=== PATIENT | male | born 1945 | race Caucasian/White ===

== ENCOUNTER 2022-04-10 04:43 | Emergency (ER) | payer MEDICARE, SELFPAY ==
[2022-04-10 04:48] VITALS: BP 196/84; PULSE 75; RESP 19; TEMP 36.7; O2SAT 95; BMI 25.7
--- NOTE | 2022-04-10 05:01 | ED_ITS ---
HPI - General Adult General: Chief complaint: General Medical Stated complaint: Rib Pain Time Seen by Provider: 04/10/22 04:55 Source: patient History of Present Illness: 76-year-old male with focal right-sided anterior lateral rib pain for the last 2 weeks. He notes that he was getting into a [id number] around that time, and felt a stretch. He also notes that his daughter struck him in that area playing around that same time. He denies significant cough, fever, shortness of breath, nausea or vomiting. The pain awoke him from sleep this morning, so he decided to come be evaluated. Onset (ago): week(s) (2) Location: chest Radiation: non-radiation Severity: moderate Quality: sharp Pain Consistency: intermittent Relieving factors: none Exacerbating factors: movement Associated symptoms: Deny chest pain, confusion, cough, diaphoresis, decreased appetite, dyspnea, fevers/chills, headache(s), nausea, rash or vomiting Review of Systems Const: Denies: fever(s), chills or diaphoresis ENMT: Denies: throat pain Card: Denies: chest pain Resp: Denies: dyspnea GI: Denies: nausea or vomiting Musc: Denies: neck pain or back pain Skin/Breast: Denies: rash Neuro: Denies: headache(s) or confusion Physical Exam Const: COMMON NORMALS: no acute distress and alert GENERAL APPEARANCE: not ill appearing HENMT: COMMON NORMALS: normocephalic, atraumatic and Normal external nose present HEAD & SCALP: normocephalic and atraumatic NOSE: Normal external nose present Eye: COMMON NORMALS: Equal, round and reactive pupils present and EOMs intact bilaterally PUPIL: Yes Equal, round and reactive pupils present Neck/C-Spine: GENERAL: Yes trachea midline Chest: CHEST: Yes Symmetrical chest wall rise OTHER: Examination of the chest wall reveals anterior lateral rib tenderness very focally around the right ribs 7. There is no deformity. There is no flail segm ent. There is no ecchymosis or bruising. Resp: COMMON NORMALS: normal respiratory effort, No use of accessory muscles and clear to auscultation bilaterally AUSCULTATION: clear to auscultation bilaterally Cardio: COMMON NORMALS: regular rate and regular rhythm RATE: regular rate RHYTHM: regular rhythm GI: COMMON NORMALS: Normal to inspection, nondistended, normoactive bowel sounds present, Soft to palpation and non-tender PALPATION: Yes Soft to palpation : COMMON NORMALS: No no CVA tenderness BLADDER/KIDNEY EXAM: No no CVA tenderness Back/Pelvis: COMMON NORMALS: negative for no CVA tenderness Extremity: COMMON NORMALS: no pedal edema Neuro: HORTENCIA COMA SCALE: document GCS findings [place] coma scale eye opening: Spontaneous [place] coma scale verbal response: Orientated Hortencia coma scale motor response: Obey commands Hortencia coma scale total score: 15 SENSORIUM/ORIENTATION: Yes alert SENSORY EXAM: Yes extremities (Intact) MOTOR EXAM: 5/5 motor strength present throughout Skin: COMMON NORMALS: no rashes or lesions noted GENERAL SKIN EXAM: no rashes or lesions noted Course Vital Signs: Vital signs: Vital Signs Temperature 98.1 F 04/10/22 04:48 Pulse Rate 75 04/10/22 04:48 Respiratory Rate 16 04/10/22 05:09 Blood Pressure 196/84 04/10/22 04:48 Pulse Oximetry 95 04/10/22 04:48 Oxygen Delivery Me thod 04/10/22 04:48 [facility] - General Adult Medical Decision Making Patient with very focal very reproducible right anterior lateral chest wall tenderness. He is nontachycardic, and not short of breath. He has no fever, no history of cough. His EKG is normal with a rate of 75, normal axis, no ST changes. Intervals are normal. He is in sinus. His chest x-ray shows a right lateral nondisplaced fracture rib #6. There is no apparent mass. There is no corresponding pneumothorax or infiltrate. He will be allowed home to follow-up with his doctor. Discharge Plan Discharge Patient Disposition: Home Clinical Impression: Fracture of rib Condition: Stable Prescriptions: New hydrocodone-acetaminophen 5-325 mg tablet 1 tab PO Q8H PRN (Reason: pain) Qty: 7 0RF Discharge Orders: Discharge ED (Routine); Ordered 04/10/22 Ordered By: Bruno Seay Patient Instructions: Rib Fracture (ED), Opioid Safety Activity Restrictions/Additional Instructions: Use Tylenol or ibuprofen during the day. Use pain medication to help you sleep. Return for shortness of breath, fever, worsening pain despite treatment, any o ther concerning symptoms Coding Level of Care Code ED Director Digital Communications for Chg Fwd Exam Comprehensive
--- NOTE | 2022-04-10 05:05 | XRR_ITS ---
PROCEDURE INFORMATION: Exam: XR Right Ribs with PA Chest Exam date and time: 04/10/2022 5:18 AM Age: 76 years old Clinical indication: Other: RT antior mid ribs; Patient HX: Pain to mid right anterior ribs x 2 weeks no known injury; Additional info: R mid rib pain TECHNIQUE: Imaging protocol: Radiologic exam of the Right ribs with PA chest. Views: 3 views COMPARISON: No relevant prior studies available. FINDINGS: Lungs: Unremarkable. No consolidation. Pleural spaces: Unremarkable. No pleural effusion. No pneumothorax. Heart/Mediastinum: Unremarkable. No cardiomegaly. Bones/joints: Degenerative changes of the spine seen. There is nondisplaced fracture of the right anterolateral 5th and 6th ribs. XR/XR ribs RT mn 3V w [id number] IMPRESSION: Nondisplaced fracture of the right anterolateral 5th and 6th ribs.
[2022-04-10 05:09] VITALS: RESP 16
[2022-04-10] MEDS: oxyCODONE-APAP 5-325 mg Tablet 2 TAB PO (05:09)
[2022-04-10 05:48] VITALS: PULSE 71; RESP 16; O2SAT 97
== END 2022-04-10 05:45 | disposition home or self-care (01) ==
PROVIDERS: Emergency Provider Emergency Medicine
DX: S22.31XA Fracture of one rib, right side, initial encounter for closed fracture (principal); X50.9XXA Other and unspecified overexertion or strenuous movements or postures, initial encounter
CPT/HCPCS: 71101; 99283

== ENCOUNTER 2025-02-27 14:52 | Observation (INO) | payer MEDICARE, SELFPAY ==
[2025-02-27] VITALS (7 sets, daily range): BP systolic 172–206; BP diastolic 86–103; PULSE 89–101; RESP 16–22; TEMP 36.8–37.1; O2SAT 97–99; BMI 25.1; BMI 23.6
--- OUTSIDE RECORDS SUMMARY | 2025-02-27 15:21 | XMS_ITS | Encounter Summary ---
Author Organization [facility] Address [address] [place] [address] Care Team Providers Care Middle School Coach Name Role Phone Adriana Smith DO Primary Care Provider Encounter Details Date Type Department Care Team (Late st Contact Info) Description 05/30/2021 Telephone [facility] Medicine [place] [address] [facility] [place] [address] Adriana Smith DO [address] [place] [address] Social History Tobacco Use Types Packs/Day Years Used Date Smoking Tobacco: Never Smokeless Tobacco: Current Chew Alcohol Use Standard Drinks/Week Comments No 0 (1 standard drink = 0.6 oz pur e alcohol) Sex and Gender Information Value Date Recorded Sex Assigned at Not on file 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
--- OUTSIDE RECORDS SUMMARY | 2025-02-27 15:21 | XMS_ITS | Encounter Summary ---
Author Organization [facility] Address [address] [place] [address] Care Team Providers Care Validation Specialist Name Role Phone Adriana Smith DO Primary Care Provider Encounter Details Date Type Department Care Team (Late st Contact Info) Description 03/09/2003 Outpatient Historical [facility] [place] [address] [address] 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
--- OUTSIDE RECORDS SUMMARY | 2025-02-27 15:21 | XMS_ITS | Encounter Summary ---
Author Organization [facility] Address [address] [place] [address] Care Team Providers Care Mobile Lab Technician Name Role Phone Adriana Smith DO Primary Care Provider [phone] Encounter Details Date Type Department Care Team (Late st Contact Info) Description 02/25/2025 External Device Data [facility]STRACTION Provider, Abstract NO ADDRESS ON FILE Social History Tobacco Use Types Packs/Day Years Used Date Smoking Tobacco: Never Passive Smoke Exposure: Never Smokeless Tobacco: Current Chew Alcohol Use Standard Drinks/Week Comments No 0 (1 standard drink = 0.6 oz pur e alcohol) Sex and Gender Information Value Date Recorded Sex Assigned at Not on file 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
--- OUTSIDE RECORDS SUMMARY | 2025-02-27 15:21 | XMS_ITS | Encounter Summary ---
Author Organization [facility] Address [address] [place] [address] Care Team Providers Care Pediatric Physician Assistant Name Role Phone Adriana Smith DO Primary Care Provider [phone] Encounter Details Date Type Department Care Team (Late st Contact Info) Description 02/24/2025 External Device Data [facility] ABSTRACTION Provider, Abstract [...] on file Legal Sex Male 5:27 AM TRANSCRIPTION TYPIST Gender Identity Not on file Sexual Orientation Not on file documented as of this encounter Plan of Treatment Not on file documented as of this encounter Visit Diagnoses Not on filedocumented in this encounter Additional Health Concerns Assessment Noted Time PHQ-9 Depression Total Score: 2 06/10/20 24 9:18 AM CDT documented as of this encounter Care Teams Pediatric Physician Assistant Relationship Specialty Start Date End Date Adriana Smith DO [address] [facility] [place] [address] PCP - General Family Practice 04/29/10 documented as of this encounter
--- OUTSIDE RECORDS SUMMARY | 2025-02-27 15:21 | XMS_ITS | Clinical Summary ---
Author Organization [facility] Address [address] [place] [place] [address] Care Team Providers Care Hydrate Control Tender Name Role Phone Adriana Smith Primary Care Provider [phone]- [phone] Allergies Active Allergy Reactions Criticality Noted Date Comments Aspirin Palpitations Low 01/04/2022 Medications sildenafiL, pulm.hypertension, (REVATIO) 20 mg TabletIndications:Erecti le dysfunction, unspecified erectile dysfunction type Take 1-2.5 tabs 30 minutes prior to sexual activity. 10 Tablet 02/07/20 23 Active ALPRAZolam (XANAX) 0.25 mg tabletIndications:Anxiet y Take 1 Tablet (0.25 mg) by mouth nightly as needed for Anxiety. 30 Tablet 2 02/07/20 23 Active citalopram (CeleXA) 40 mg tabletIndications:Recurr ent major depressive disorder, in partial remission Take 1 Tablet (40 mg) by mouth daily. 90 Tablet 3 06/04/20 24 Active metoprolol tartrate (LOPRESSOR) 50 mg tabletIndications:Essent ial hypertension TAKE 1 TABLET BY MOUTH TWICE DAILY 180 Tablet 1 11/28/19 25 Active pantoprazole (PROTONIX) 40 mg Tablet, Delayed Release (E.C.)Indications:Gastro esophageal reflux disease without esophagitis TAKE 1 TABLET BY MOUTH DAILY. 100 Tablet 1 11/28/19 25 Active simvastatin (ZOCOR) 20 mg tabletIndications:Pure hypercholesterolemia TAKE ONE TABLET BY MOUTH DAILY AT BEDTIME 100 Tablet 1 12/09/19 25 Active Active Problems Problem Noted Date Diagnosed Date Pure hypercholesterolemia 08/27/2023 Generalized anxiety disorder 01/04/2022 Chewing tobacco dependence 12/13/2020 Anxiety 07/27/2014 Elevated LDL cholesterol level 07/27/2014 Fibromyalgia muscle pain 01/12/2014 Anxiety state 05/08/2010 Essential hypertension 05/08/2010 Resolved Problems Problem Noted Date Diagnosed Date Resolved Date Grief reaction 05/08/2010 09/03/2013 Encounters Date Type Department Care Team Description 02/25/2025 External Device Data [facility] ABSTRACTION Provider, Abstract 02/25/2025 External Device Data [facility] ABSTRACTION Provider, Abstract 02/25/2025 External Device Data [facility] ABSTRACTION Provider, Abstract 02/24/2025 External Device Data [facility] ABSTRACTION Provider, Abstract 01/27/2025 External Device Data [facility] ABSTRACTION Provider, Abstract 01/06/2025 External Device Data [facility] ABSTRACTION Provider, Abstract 01/01/2025 External Device Data [facility] ABSTRACTION Provider, Abstract 12/30/2024 External Device Data [facility] ABSTRACTION Provider, Abstract 12/08/2024 Refill [facility] [address] [place] [address] Lukas Tavarez, MICHAEL Pure hypercholesterolemia from Last 3 Months Immunizations Immunization Administration Dates Next Due (ADACEL/BOOSTRIX)(10 YR UP) TDAP VACCINE, 0.5ML, IM 12/27/2018 (PFIZER)(12 YR UP) COVID-19 VACCINE - EMERGENCY USE AUTHORIZATION, MRNA, [id number](PF) 30 MCG/0.3 ML IM SUSP 05/16/2021,04/25/2021 Family History Medical History Relation Name Comments Cancer Father Diabetes Mother Relation Name Status Comments Father Mother Social History Tobacco Use Types Packs/Day Years Used Date Smoking Tobacco: Never Passive Smoke Exposure: Never Smokeless Tobacco: Current Chew Tobacco Cessation:Ready to Q uit: No; Counseling Given: Yes Alcohol Use Standard Drinks/Week Comments No 0 (1 standard drink = 0.6 oz pur e alcohol) Sex and Gender Information Value Date Recorded Sex Assigned at Not on file Legal Sex Male 5:27 AM FIVE PIECE EXPANSION MAKER HAND Gender Identity Not on file Sexual Orientation Not on file Last Filed Vital Signs Vital Sign Reading Time Taken Comments Blood Pressure 132/76 06/20/2024 4:00 PM FIVE PIECE EXPANSION MAKER HAND Pulse 67 06/10/2024 9:30 AM CDT Temperature 36.7 C (98 F) 06/10/2024 9:30 AM CDT Respiratory Rate 18 06/10/2024 9:30 AM CDT Oxygen Saturation 98% 06/10/2024 9:30 AM CDT Inhaled Oxygen Concentration - - Weight 74.6 kg (164 lb 6.4 oz) 06/10/2024 9:30 A M CDT Height 175.3 cm (5' 9 ) 06/10/2024 9:30 AM CDT Body Mass Index 24.28 06/10/2024 9:30 AM CDT Plan of Treatment Health Maintenance Due Date Last Done Comments PNEUMOCOCCAL VACCINE 50+ YEA RS (1 of 1 - PCV) 1994 ZOSTER VACCINE (1 of 2) 1994 RSV VACCINE (60+ or ) (1 - 1-dose 75+ series) 2019 COVID-19 Vaccine (3 - 2023-2 5 season) 2024 05/16/2021, 04/25/2021 Medicare [place] ([place]) Preventative Visit/Annual Wellness Visit 08/13/2024 06/10/2024, 12/07/2022, 01/04/2022, Additional history exists INFLUENZA VACCINE (#1) 2025 , 08/27/2023, 2021, Additional history exists DTAP/TDAP/TD VACCINES (2 - T d or Tdap) 12/27/2028 12/27/2018 Colorectal Cancer Screening Discontinued FIT-DNA Q 3 years Discontinued 07/19/2020 COLORECTAL SCREENING Discontinued FIT/FOBT Q 1 year Discontinued Flex Sig/CT Colonography Q 5 years Discontinued Medical Devices Implanted Type Area Automotive Sales Specialist Device Identifier Shelf Expiration Date Model / Serial / Lot Clip Crtg Med/Lrg 1112 - Sna Implanted:Qty: 1 on 01/30/2023 by Mario Escudero DO at [facility] Clip N/A: Abdomen [employer] 10/10/2027 1112 / NA / [id number] Procedures Procedure Name Priority Date/Time Associated Diagnosis Comments COLON CANCER SCREEN, STOOL DNA Routine 07/19/2020 7:06 PM FIVE PIECE EXPANSION MAKER HAND from Last 3 Months or Most Recently Relevant to Health Maintenance Results * COLON CANCER SCREEN, STOOL DNA (07/19/2020 7:06 PM FIVE PIECE EXPANSION MAKER HAND) COLOGUARD RESULT Negative Not Applicable 07/23/2020 10:22 PM [facility] Comment: A negative result indicates a low likelihood that a colorectal cancer (CRC) or an advanced adenoma (adenomatous polyps with more advanced pre-malignant features) is present. The chance that a person with a negative Cologuard test has a colorectal cancer is less than 1 in 1500 (negative predictive value >99.9%) or has an advanced adenoma is less than 5.3% (negative predictive value 94.7%). These data are based on a prospective cross-sectional screening study of 10,000 individuals at average risk for colorectal cancer who were screened with both Cologuard and colonoscopy. (Miguel Van. et al, N Engl J Med 2014;370(14):8685-1459) The normal value (reference range) for this assay is negative. COLOGUARD RE-SCREENING RECOMMENDATION: Periodic routine colorectal cancer screening is an important part of preventive healthcare for asymptomatic persons at average risk for colorectal cancer. Following a negative Cologuard result, the [place] Cancer Society and U.S. Multi-Society Task Force screening guidelines recommend a Cologuard re-screening interval of 3 years. References: [place] [employer] Society (ACS). Colorectal cancer prevention and early detection. [place], [place]: [place] [employer]; [updated 2015Dec 04]. https://www.cancer.org/cancer/hxvfg-erhklb-aijrco/ktivonrzv-utcplaytk-krnjljm/ac s-rec ommendations.html. Accessed April 12, 2018; Herberth DK, Brant CR, Awa VelasquezK, Colorectal Cancer Screening: Recommendations for Physicians and Patients from the U.S. Multi-Society Task Force on Colorectal Cancer Screening, Am J Gastroenterology 2017; 112:8276-8564. TEST TYPE: Composite algorithmic analysis of stool DNA-biomarkers with hemoglobin immunoassay. Quantitative values of individual biomarkers are not reportable and are not associated with individual biomarker result reference ranges. PRECAUTIONS AND LIMITATIONS: Cologuard is intended for colorectal cancer screening of adults of either sex, 45 years or older, who are at average-risk for colorectal cancer (CRC). Cologuard has been approved for use by the U.S. FDA. Cologuard may produce a false negative or false positive result. A negative Cologuard test result does not guarantee the absence of CRC or advanced adenoma (pre-cancer). Patients with a negative Cologuard test result should be advised to continue participating in a colorectal cancer screening program. The screening interval for Cologuard is currently recommended at an interval of every 3 years by the [place] Cancer Society and U.S. Multi-Society Task Force. A false positive result occurs when Cologuard produces a positive result, even though a colonoscopy may not find colorectal cancer or precancerous polyps. The performance of Cologuard has been established in a cross sectional study (i.e., single point in time) of average-risk adults aged 50-84. Cologuard performance in patients ages 45 to 49 years was estimated by sub-group analysis of near-age groups. Cologuard performance data in a 10,000 patient pivotal study using colonoscopy as the reference method can be accessed at the following location: www.Breathometer/results. Additional description of the Cologuard test process, warnings and precautions can be found at www.cologuardtest.com. Rx only. Stool STOOL SPECIMEN / Unknown 07/19/2020 7:06 PM FIVE PIECE EXPANSION MAKER HAND 07/20/2020 6:49 PM FIVE PIECE EXPANSION MAKER HAND us Dayan Vale [employer] MARKETING MANAGER BODY FLUIDS AND STOOLS Final Result [facility] # [id number] [address], [address] [place] [address] from Last 3 Months or Most Recently Relevant to Health Maintenance Insurance [facility] MEDICARE HMO Advance Directives For more information, please contact: [phone] * Full Code (Latest Code Status on File) Date Activated Date Inactivated Comments 01/30/2023 8:45 AM 01/30/2023 12:41 PM * Full Code Date Activated Date Inactivated Comments 01/30/2023 7:07 AM 01/30/2023 8:44 AM * Full Code Date Activated Date Inactivated Comments 01/30/2023 6:47 AM 01/30/2023 7:07 AM Care Teams Hydrate Control Tender Relationship Specialty Start Date End Date Adriana Smith DO [address] [place] [address] PCP - General Family Practice 04/29/10
--- OUTSIDE RECORDS SUMMARY | 2025-02-27 15:21 | XMS_ITS | Clinical Summary ---
Author Organization [facility] Address [address] [place] [address] Care Team Providers Care Financial Service Professional Name Role Phone Adriana Smith Primary Care Provider Allergies No known active allergies Medications citalopram (CeleXA) 40 mg tabletIndications :Anxiety state,Recurrent major depressive disorder, in partial remission TAKE 1 TABLET(40 MG) BY MOUTH DAILY 90 Tablet 4 03/23/2020 Active metoprolol tartrate (LOPRESSOR) 50 mg tabletIndications :Essential hypertension TAKE 1 TABLET(50 MG) BY MOUTH TWICE DAILY 180 Tablet 4 07/14/2020 Active ALPRAZolam (Xanax) 0.25 mg tabletIndications :Anxiety Take 1 Tablet (0.25 mg) by mouth 3 times daily as needed for Anxiety. 30 Tablet 2 07/14/2020 Active pantoprazole (Protonix) 40 mg Tablet, Delayed Release (E.C.)Indications :Gastroesophageal reflux disease without esophagitis Take 1 Tablet (40 mg) by mouth daily. 30 Tablet 1 12/13/2020 Active Active Problems Problem Noted Date Diagnosed Date Chewing tobacco dependence 12/13/2020 Anxiety 07/27/2014 Elevated LDL cholesterol level 07/27/2014 Fibromyalgia muscle pain 01/12/2014 Anxiety state 05/08/2010 HTN (hypertension) 05/08/2010 Resolved Problems Problem Noted Date Diagnosed Date Resolved Date Grief reaction 05/08/2010 09/03/2013 Immunizations Immunization Administration Dates Next Due (ADACEL/BOOSTRIX)(10 YR UP) TDAP VACCINE, 0.5ML, IM 12/27/2018 Family History Medical History Relation Name Comments Cancer Father Diabetes Mother Relation Name Status Comments Father Mother Social History Tobacco Use Types Packs/Day Years Used Date Smoking Tobacco: Never Smokeless Tobacco: Current Chew Tobacco Cessation:Ready to Q uit: No; Counseling Given: Yes Alcohol Use Standard Drinks/Week Comments No 0 (1 standard drink = 0.6 oz pur e alcohol) Sex and Gender Information Value Date Recorded Sex Assigned at Not on file 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 Gender Identity Not on file Sexual Orientation Not on file Last Filed Vital Signs Vital Sign Reading Time Taken Comments Blood Pressure 139/85 12/13/2020 8:20 AM CDT Pulse 78 12/13/2020 8:20 AM CDT Temperature 36.7 C (98 F) 12/13/2020 8:20 AM CDT Respiratory Rate 16 12/27/2018 3:12 PM CDT Oxygen Saturation 99% 12/13/2020 8:20 AM CDT Inhaled Oxygen Concentration - - Weight 79.8 kg (176 lb) 12/13/2020 8:20 AM CDT Height 175.3 cm (5' 9 ) 12/13/2020 8:20 AM CDT Body Mass Index 25.99 12/13/2020 8:20 AM CDT Plan of Treatment Health Maintenance Due Date Last Done Comments PNEUMOCOCCAL VACCINE 50+ YEA RS (1 of 1 - PCV) 1994 ZOSTER VACCINE (1 of 2) 1994 RSV VACCINE (60+ or ) (1 - 1-dose 75+ series) 2019 Medicare Advantage ([place]) Preventative Visit/Annual Wellness Visit 08/13/2024 06/10/2024, 12/13/2020, 07/14/2020, Additional history exists INFLUENZA VACCINE (#1) 2025 07/14/2020 DTAP/TDAP/TD VACCINES (2 - T d or Tdap) 12/27/2028 12/27/2018 Colorectal Cancer Screening Discontinued FIT-DNA Q 3 years Discontinued 07/19/2020 COLORECTAL SCREENING Discontinued FIT/FOBT Q 1 year Discontinued Flex Sig/CT Colonography Q 5 years Discontinued Procedures Procedure Name Priority Date/Time Associated Diagnosis Comments COLON CANCER SCREEN, STOOL DNA Routine 07/19/2020 7:06 PM SINGLE WIRE SAW OPERATOR Screening for colon cancer from Last 3 Months or Most Recently Relevant to Health Maintenance Results * COLON CANCER SCREEN, STOOL DNA (07/19/2020 7:06 PM SINGLE WIRE SAW OPERATOR) Pathologist [facility] COLOGUARD RESULT Negative Not Applicable [facility] Comment: A negative result indicates a low [...] screened with both Cologuard and colonoscopy. (Miguel Antonio et al, N Engl J Med 2014;370(14):3944-5468) The normal value (reference range) for this assay is negative. COLOGUARD RE-SCREENING RECOMMENDATION: Periodic routine colorectal cancer screening is an important part of preventive healthcare for asymptomatic persons at average risk for colorectal cancer. Following a negative Cologuard result, the [place] Cancer Society and U.S. Multi-Society Task Force screening guidelines recommend a Cologuard re-screening interval of 3 years. References: [place] [employer] Society (ACS). Colorectal cancer prevention and early detection. [place], [place]: [place] [employer] Society; [updated 2015Dec 04]. https://www.cancer.org/cancer/qoolu-idejwq-dhjgds/etkuzujsv-uzquafcrg-ezspync/ac s-rec ommendations.html. Accessed April 12, 2018; Herberth DK, Brant TALAVERA, Awa VelasquezK, Colorectal Cancer Screening: Recommendations for Physicians and Patients from the U.S. Multi-Society Task Force on Colorectal Cancer Screening, Am J Gastroenterology 2017; 112:4892-3178. TEST TYPE: Composite algorithmic analysis of stool [...] interval of every 3 years by the [place] [employer] Society and U.S. Multi-Society Task Force. [...] can be accessed at the following location: www.[employer]/results. Additional description of the Cologuard test process, warnings and precautions can be found at www.cologuardtest.com. Rx only. Stool STOOL SPECIMEN / Unknown 07/19/2020 7:06 PM SINGLE WIRE SAW OPERATOR 07/20/2020 6:49 PM SINGLE WIRE SAW OPERATOR us Dayan Vale LOAN REVIEW MANAGER BODY FLUIDS AND STOOLS Final Result [facility] CLIA # [id number] [address] , [address] [place] [address] from Last 3 Months or Most Recently Relevant to Health Maintenance Insurance [facility] MCR Care Teams Financial Service Professional Relationship Specialty Start Date End Date Adriana Smith DO [address] [place] [id number] PCP - General Family Practice 04/29/10
--- OUTSIDE RECORDS SUMMARY | 2025-02-27 15:21 | XMS_ITS | Encounter Summary ---
Author Organization [facility] Address 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
--- OUTSIDE RECORDS SUMMARY | 2025-02-27 15:21 | XMS_ITS | Encounter Summary ---
Author Organization [facility] Address 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
--- NOTE | 2025-02-27 15:40 | W.ED.ARRPALP ---
HPI - Arrhythmia/Palpitations General: Chief Complaint: Arrhythmia/Palpitations Stated Complaint: Fast heart rate Time Seen by Provider: 02/27/25 15:40 History of Present Illness: 79-year-old male presents emergency room complaining of rapid heart rate and palpitations. He states that this intermittently for the last 3 days he takes metoprolol and simvastatin. He does have a chest pain he has some chest discomfort as he describes it no radiation. No shortness of breath. He is not able to take aspirin because of allergy. Related Data Home Medications ?Medication ?Instructions ?Recorded ?Confirmed citalopram 40 mg tablet 40 mg PO DAILY 02/27/25 02/27/25 metoprolol tartrate 50 mg tablet 50 mg PO BID 02/27/25 02/27/25 pantoprazole 40 mg tablet,delayed 40 mg PO DAILY 02/27/25 02/27/25 release simvastatin 20 mg tablet 20 mg PO BEDTIME 02/27/25 02/27/25 Allergies Allergy/AdvReac Type Severity Reaction Status Date / Time aspirin Allergy ADR/ALGY-Pa Verified 02/27/25 14:58 lpitations Review of Systems Const: Denies: fever(s) or chills Card: Reports: palpitations; Denies: chest pain Resp: Denies: dyspnea GI: Denies: abdominal pain : Denies: dysuria, urinary frequency or urinary urgency Musc: Denies: neck pain or back pain Skin/Breast: Denies: rash PFS ED PFSH: Medical History (Updated 02/27/25 @ 16:54 by Mina Durán DO) Hyperlipidemia Hypertension Physical Exam Const: GENERAL APPEARANCE: cooperative ORIENTATION/CONSCIOUSNESS: Yes awake, Yes oriented to person, Yes oriented to place and Yes oriented to time HENMT: COMMON NORMALS: normocephalic, atraumatic and hearing grossly normal bilaterally HEAD & SCALP: normocephalic and atraumatic Resp: COMMON NORMALS: normal respiratory effort, No retractions, No use of accessory muscles and clear to auscultation bilaterally AUSCULTATION: clear to auscultation bilaterally Cardio: COMMON NORMALS: regular rate, regular rhythm and No murmurs present (Cardio) RATE: regular rate RHYTHM: regular rhythm GI: COMMON NORMALS: Soft to palpation and No hepatosplenomegaly present AUSCULTATION: Yes normoactive bowel sounds PALPATION: Yes Soft to palpation, No Tenderness to palpation present (GI), No Guarding due to palpation present (GI) and Yes No hepatosplenomegaly present Extremity: COMMON NORMALS: normal to inspection, capillary refill normal, no clubbing, cyanosis or edema, no calf tenderness and no pedal edema Neuro: SENSORIUM/ORIENTATION: Yes oriented to person, Yes oriented to place and Yes oriented to time Skin: COMMON NORMALS: no rashes or lesions noted GENERAL SKIN EXAM: no rashes or lesions noted Course Vital Signs: Vital signs: Vital Signs Temperature 98.3 F 02/27/25 14:58 Pulse Rate 98 02/27/25 14:58 Respiratory Rate 16 02/27/25 14:58 Blood Pressure 206/93 02/27/25 14:58 Pulse Oximetry 99 02/27/25 14:58 Oxygen Delivery Me thod Room Air 02/27/25 14:58 MDM - Arrhythmia/Palpitations Medical Decision Making Initial EKG shows noticeable ST depression in the lateral leads these resolves by time the second 1 is drawn. He is moderately hypertensive he was given hydralazine. Will admit the patient to hospitalist consult cardiology. Medical Records I reviewed the patient's medical records. Lab Data I reviewed the patient's lab results. 02/27/25 16:32 02/27/25 16:32 Laboratory Results WBC 8.64 10^3/uL (3.29-11.43) 02/27/25 16:32 RBC 5.44 10^6/uL (3.85-5.65) 02/27/25 16:32 Hgb 16.20 g/dL (11.27-16.99) 02/27/25 16:32 Hct 48.9 % (37-53) 02/27/25 16:32 MCV 89.9 fl (82-101) 02/27/25 16:32 MCH 29.8 pg (27-33) 02/27/25 16:32 MCHC 33.1 g/dL (30-55) 02/27/25 16:32 RDW 12.6 % (12.1-15.1) 02/27/25 16:32 Plt Count 263 10^3/cmm (157-399) 02/27/25 16:32 MPV 10.1 fL (7.4-10.4) 02/27/25 16:32 Neut % (Auto) 65.7 % 02/27/25 16:32 Lymph % (Auto) 26.6 % 02/27/25 16:32 [place] % (Auto) 6.7 % 02/27/25 16:32 Eos % (Auto) 0.3 % 02/27/25 16:32 Baso % (Auto) 0.5 % 02/27/25 16:32 Neut # (Auto) 5.67 10^3/uL (1.8-7.7) 02/27/25 16:32 Lymph # (Auto) 2.3 10^3/uL (0.8-4.8) 02/27/25 16:32 [place] # (Auto) 0.6 10^3/uL (0.2-0.9) 02/27/25 16:32 Eos # (Auto) 0.0 10^3/uL (0.0-0.8) 02/27/25 16:32 Baso # (Auto) 0.0 10^3/uL (0.0-0.1) 02/27/25 16:32 Nucleated RBC % (auto) 0 % 02/27/25 16:32 Nucleated RBCs # 0.0 /100WBC 02/27/25 16:32 XR interpretation done by ED provider, pending radiology final review EKG Data EKG 1: Interpretation: EKG February 27, 2025 1456 normal sinus rhythm rate of 96. [address] depression in lateral leads V4 [address] elevation. No previous EKGs to compare EKG 2: Interpretation: EKG since February 27, 2025 1614 normal sinus rhythm rate of 80 MI interval [address] depressions seen in V4 5 and 6 previously has resolved and returned normal baseline. Discharge Plan Discharge Patient Disposition: Admitted As Inpatient Clinical Impression: Abnormal ECG, Palpitations Condition: Stable Coding Level of Care Code ED Neurology Tech for Jamie Mantilla
--- NOTE | 2025-02-27 16:14 | ECG_ITS ---
[facility] Test Date: 2025-02-27 Pat Name: Dar Valdes Department: Room: Gender: Male Service Center Assistant: : 1945 Requested By: Mina Corral Order Number: [id number] Jone MD: Harinder Marie M.D. Measurements Intervals [place] Rate: 80 P: 71 [place]: 161 QRS: 36 QRSD: 87 T: 48 QT: 388 QTc: 448 Interpretive Statements SINUS RHYTHM No previous ECG available for comparison Electronically Signed On 02-28-2025 00:17:09 CDT by Harinder Marie M.D. [email or web address]
--- NOTE | 2025-02-27 16:20 | ECG_ITS ---
[facility] Test Date: 2025-02-27 Pat Name: Dar Valdes Department: Room: Gender: Male Aircraft Quality Control Inspector: : 1945 Requested By: Mina Corral Order Number: [id number] Jone MD: Harinder Marie M.D. Measurements Intervals [place] Rate: 96 P: 81 MO: 155 QRS: 66 QRSD: 81 T: 42 QT: 332 QTc: 421 Interpretive Statements SINUS RHYTHM MINIMAL ST DEPRESSION [0.025+ mV ST DEPRESSION] No previous ECG available for comparison Electronically Signed On 02-28-2025 00:17:23 CDT by Harinder Marie M.D. [email or web address]
--- NOTE | 2025-02-27 16:37 | XRR_ITS ---
PROCEDURE INFORMATION: Exam: XR Chest Exam date and time: 02/27/2025 4:38 PM Age: 79 years old Clinical indication: Other: Tachycardia; Additional info: Rapid heart rate chest discomfort TECHNIQUE: Imaging protocol: Radiologic exam of the chest. Views: 1 view. COMPARISON: CR XR ribs RT mn 3V w CXR1V [id number] 04/10/2022 5:18 AM FINDINGS: Lungs: Visualized portions of the lungs are clear. There is no pulmonary venous congestion. Pleural spaces: Unremarkable. No pleural effusion. No pneumothorax. Heart/Mediastinum: Heart is within normal limits of size. Bones/joints: There are degenerative changes in the lower thoracic spine. XR/XR chest 1V portable [id number] IMPRESSION: No acute infiltrate.
[2025-02-27 16:47] LABS: Hematocrit 48.9 % (37-53); Hemoglobin 16.20 g/dL (11.27-16.99); Mean Corpuscular HGB Conc 33.1 g/dL (30-55); Mean Corpuscular Hemoglobin 29.8 pg (27-33); Mean Corpuscular Volume 89.9 fl (82-101); Nucleated Red Blood Cells % 0 %; Platelet Count 263 10^3/cmm (157-399); Red Blood Count 5.44 10^6/uL (3.85-5.65); White Blood Count 8.64 10^3/uL (3.29-11.43)
[2025-02-27] MEDS: hyDRALAzine 20 mg/mL INJ 1 mL 10 MG IVP (16:59)
[2025-02-27 17:05] LABS: Troponin(5th) Baseline 14 ng/L (0-15)
[2025-02-27 17:17] LABS: Alanine Aminotransferase 13 U/L (0-41); Albumin Level 4.2 g/dL (3.5-5.2); Alkaline Phosphatase 79 U/L (40-130); Aspartate Amino Transferase 15 U/L (0-40); Blood Urea Nitrogen 16 mg/dL (8-23); Calcium 9.5 mg/dL (8.5-10.5); Carbon Dioxide 27 mmol/L (22-29); Chloride 101 mmol/L (98-107); Creatinine Clr Calc Pharmacy 67.8374; Globulin 3.2 g/dL (1.3-4.6); Glucose 97 mg/dL (65-115); Osmolality Calculated 293 mOsm/kg (285-295); Sodium 141 mmol/L (136-145); Thyroid Stimulating Hormone 0.88 uIU/mL (0.27-4.20); Total Protein 7.4 g/dL (6.6-8.7)
[2025-02-27 17:32] LABS: Anion Gap 17.0 (5-19); Potassium 4.0 mmol/L (3.5-5.1)
--- NOTE | 2025-02-27 17:35 | PM.CONSULT ---
Providers/Reason For Consult Consulting Physician/Specialty*: HIRAL Marie MD/cardiology Reason for Consult*: Chest pain with abnormal EKG History of Present Illness History of Present Illness Dar Valdes is a 79 year old male presenting with the palpitations. Was found to have an abnormal EKG. cardiology consult was requested for further cardiac evaluation and recommendations. This patient has a history of high blood pressure and dyslipidemia for the last many years. He has been in his baseline state of health up until 3 days ago when he started having pounding in the chest associated with some discomfort. Usually happens with activities. When he tried to get up from a sitting up position, he feels a heart pounding and has some shortness of breath . No fever, chills or cough. No orthopnea PND. No leg swelling. No pounding is more or less constant with a waxing and waning. He has no previous history of coronary coronary disease, myocardial infarction or congestive heart failure. According to him, the blood pressure has been fairly stable at home. Blood pressure was found to be in the 180s and 190s in the emergency room. Has no previous history of coronary coronary disease, myocardial infarction or congestive heart failure. He has been compliant with medications. He lives alone. He chews tobacco. No smoking abuse or alcohol abuse or any other substance abuse. No significant family history for atherosclerotic heart disease. Review of Systems Narrative: CONSTITUTIONAL: No fever or chills. EYES: No blurring of vision or other visual disturbances lately. ENT: No hoarseness of voice, auditory disturbances or sore throat. CARDIOVASCULAR: As mentioned above. RESPIRATORY: May have some dyspnea on exertion. GASTROINTESTINAL: No hematemesis or melena. GENITOURINARY: No dysuria or hematuria. INTEGUMENTARY: No skin rashes or history of skin cancer. NEURO: No transient ischemic attacks or amaurosis. PSYCHIATRIC: No history of psychosis or major depression. HEMATOLOGIC: No bleeding disorders or significant anemia. ENDOCRINE: No history of polyuria or polydipsia. MUSCULOSKELETAL: No recent joint pain or swelling. ALLERGY/IMMUNOLOGY: As mentioned above. Medications/Allergies Home Medications ?Medication ?Instructions ?Recorded ?Confirmed ?Last Taken ?Type citalopram 40 mg tablet 40 mg PO DAILY 02/27/25 02/27/25 Unknown History metoprolol tartrate 50 mg tablet 50 mg PO BID 02/27/25 02/27/25 Unknown History pantoprazole 40 mg tablet,delayed 40 mg PO DAILY 02/27/25 02/27/25 Unknown History release simvastatin 20 mg tablet 20 mg PO BEDTIME 02/27/25 02/27/25 Unknown History Allergies Allergy/AdvReac Type Severity Reaction Status Date / Time aspirin Allergy ADR/ALGY-Pa Verified 02/27/25 14:58 lpitations PFSH Acute PFSH: Medical History (Updated 02/27/25 @ 18:17 by Sharona Hurt MD) Hyperlipidemia, unspecified hyperlipidemia type Primary hypertension Vitals/I&O/Wt Last Vital Signs Temp 98.3 F 02/27/25 14:58 Pulse 101 H 02/27/25 16:31 Resp 22 H 02/27/25 16:31 BP 199/103 02/27/25 16:31 Pulse Ox 99 02/27/25 16:31 O2 Del Method Room Air 02/27/25 14:58 02/27/25 02/27/25 02/27/25 06:59 14:59 22:59 Intake Total 0 / 0 Balance 0 / 0 Weight last 48 hrs Weight 170 lb Physical Exam Narrative: GENERAL: The patient is alert and oriented times three. Not in any acute distress. HEENT: No significant pallor, icterus or lymphadenopathy.Oral cavity: There are no mucous membrane lesions. NECK: Trachea appears to be central. No masses noted. No JVD or thyromegaly appreciated. RESPIRATORY: Chest is symmetrical. No intercostals muscle retraction or any accessory muscle activation. There is no chest wall tenderness. Breath sounds are heard bilaterally. No rales or rhonchi heard. No evidence of any consolidation. BREASTS: Deferred. HEART: The heart sounds are normal. No S3 or S4. No significant murmurs. No pericardial rub ABDOMEN: No vessel pulsations or distention. No tenderness. No organomegaly appreciated. Bowel sounds are normally heard. : Deferred. RECTAL: Deferred. LYMPHATIC: No lymphadenopathy noted in the neck. EXTREMITIES: No edema or cyanosis. No clubbing. MUSCULOSKELETAL: No acute joint deformities or swelling SKIN: There are no significant rashes or ecchymosis NEUROPSYCHIATRIC: The patient is alert and oriented x3. Appears to be in a good mood. No tremors or rigidity noted. Data 02/27/25 16:32 02/27/25 16:32 Other Labs: Laboratory Last Values WBC 8.64 10^3/uL (3.29-11.43) 02/27/25 16:32 RBC 5.44 10^6/uL (3.85-5.65) 02/27/25 16:32 Hgb 16.20 g/dL (11.27-16.99) 02/27/25 16:32 Hct 48.9 % (37-53) 02/27/25 16:32 MCV 89.9 fl (82-101) 02/27/25 16:32 MCH 29.8 pg (27-33) 02/27/25 16:32 MCHC 33.1 g/dL (30-55) 02/27/25 16:32 RDW 12.6 % (12.1-15.1) 02/27/25 16:32 Plt Count 263 10^3/cmm (157-399) 02/27/25 16:32 MPV 10.1 fL (7.4-10.4) 02/27/25 16:32 Neut % (Auto) 65.7 % 02/27/25 16:32 Lymph % (Auto) 26.6 % 02/27/25 16:32 [place] % (Auto) 6.7 % 02/27/25 16:32 Eos % (Auto) 0.3 % 02/27/25 16:32 Baso % (Auto) 0.5 % 02/27/25 16:32 Neut # (Auto) 5.67 10^3/uL (1.8-7.7) 02/27/25 16:32 Lymph # (Auto) 2.3 10^3/uL (0.8-4.8) 02/27/25 16:32 [place] # (Auto) 0.6 10^3/uL (0.2-0.9) 02/27/25 16:32 Eos # (Auto) 0.0 10^3/uL (0.0-0.8) 02/27/25 16:32 Baso # (Auto) 0.0 10^3/uL (0.0-0.1) 02/27/25 16:32 Nucleated RBC % (auto) 0 % 02/27/25 16:32 Nucleated RBCs # 0.0 /100WBC 02/27/25 16:32 Sodium 141 mmol/L (136-145) 02/27/25 16:32 Potassium 4.0 mmol/L (3.5-5.1) 02/27/25 16:32 Chloride 101 mmol/L (98-107) 02/27/25 16:32 Carbon Dioxide 27 mmol/L (22-29) 02/27/25 16:32 Anion Gap 17.0 (5-19) 02/27/25 16:32 BUN 16 mg/dL (8-23) 02/27/25 16:32 Creatinine 0.9 mg/dL (0.7-1.2) 02/27/25 16:32 GFR Calculation Not Reportable 02/27/25 16:32 Glucose 97 mg/dL (65-115) 02/27/25 16:32 Calculated Osmolality 293 mOsm/kg (285-295) 02/27/25 16:32 Calcium 9.5 mg/dL (8.5-10.5) 02/27/25 16:32 Total Bilirubin 0.3 mg/dL (0.15-1.2) 02/27/25 16:32 AST 15 U/L (0-40) 02/27/25 16:32 ALT 13 U/L (0-41) 02/27/25 16:32 Alkaline Phosphatase 79 U/L (40-130) 02/27/25 16:32 Troponin T Baseline 14 ng/L (0-15) 02/27/25 16:32 Total Protein 7.4 g/dL (6.6-8.7) 02/27/25 16:32 Albumin 4.2 g/dL (3.5-5.2) 02/27/25 16:32 Globulin 3.2 g/dL (1.3-4.6) 02/27/25 16:32 TSH 0.88 uIU/mL (0.27-4.20) 02/27/25 16:32 Urine Color Yellow (Yellow) 02/27/25 17: Urine Appearance Clear (CLEAR) 02/27/25 17: Urine pH 6.5 (5-7) 02/27/25 17: Ur Specific [place] 1.025 (1.005-1.030) 02/27/25 17: Urine Protein Negative (Negative) 02/27/25 17: Urine Glucose (UA) Negative (Normal) 02/27/25 17:27 Urine Ketones 1+ (Negative) H 02/27/25 17: Urine Blood Negative (Negative) 02/27/25 17: Urine Nitrate Negative (Negative) 02/27/25 17: Urine Bilirubin Negative (Negative) 02/27/25 17: Urine Urobilinogen 1.0 mg/dL (Negative) 02/27/25 17: Ur Leukocyte Esterase Negative (Negative) 02/27/25 17: Urine RBC 3-5 /hpf (0-2) 02/27/25 17:27 Urine WBC 0-5 /hpf (0-5) 02/27/25 17:27 Ur Squamous Epith Cells 0-5 /hpf (0-5) 02/27/25 17: Amorphous Sediment Not Reportable 02/27/25 17: Urine Bacteria None seen /hpf (NONE) 02/27/25 17: Hyaline Casts 0.81 /lpf 02/27/25 17:27 Other data: The EKG shows sinus rhythm with some diffuse nonspecific ST changes. A&P Assessment and plan 1. QUESADA (dyspnea on exertion): Patient's dyspnea exertion with palpitation, rather acute onset, may suggest pulmonary embolism. This need to be ruled out. LV dysfunction/coronary ischemia causing this cannot be excluded. 2. Abnormal ECG: The EKG is having nonspecific. Possibility of underlying coronary ischemia causing this is a consideration. 3. Palpitations: Possibly from the sinus tachycardia. 4. Primary hypertension: Patient has accelerated hypertension. I will start him on metoprolol 50 mg p.o. now and twice daily. 5. Hyperlipidemia, unspecified hyperlipidemia type: Lipid profile on the blood in the lab. Consider medications after reviewing the results. Plan: Metoprolol 50 mg p.o. twice daily. Nitropaste half inch every 6 hours to the anterior chest wall D-dimer Therapeutic Lovenox Possible CTA of the chest Echocardiogram duality LV function and rule out any other pathology. Based on the results of the above tests and the patient's clinical progress, further recommendations will be made. PDMP PDMP Reviewed: Not Reviewed Coding Level of Care Code 04157 Diagnoses QUESADA (dyspnea on exertion) R06.09 Abnormal ECG R94.31 Palpitations R00.2 Primary hypertension I10 Hypertension type: primary hypertension Hyperlipidemia, unspecified hyperlipidemia type E78.5 Hyperlipidemia type: unspecified
[2025-02-27 17:39] LABS: Glucose Urine UA Negative (Normal); Nitrate Urine Negative (Negative); Specific Gravity, Urine 1.025 (1.005-1.030)
[2025-02-27 17:44] LABS: Add Urine Microscopic? YES
--- NOTE | 2025-02-27 17:58 | USCV_ITS ---
Dar Valdes Age: 79 Gender: M : 1945 Exam Date: 02/27/2025 19:01 Ordering Phys: Harinder Marie MD ([email or web address]) Technologist: Phillip Ott Exam Location: [facility] Indication: abnormal ekg/ atypical chest pain BP: 172 / 94 HR: 90 Rhythm: Sinus Technical Quality: Adequate MEASUREMENTS (Male / Female) Normal Values 2D ECHO LV Diastolic Diameter PLAX 3.9 cm 4.2 - 5.9 / 3.9 - 5.3 cm IVS Diastolic Thickness 1.1 cm 0.6 - 1.0 / 0.6 - 0.9 cm IVS Systolic Thickness 1.4 cm LVPW Diastolic Thickness 1.2 cm 0.6 - 1.0 / 0.6 - 0.9 cm LVPW Systolic Thickness 1.9 cm LVOT Diameter 2.0 cm LV Ejection Fraction 2D Teich 69.5 % LV Ejection Fraction MOD 4C 78.3 % LV Ejection Fraction MOD 2C 75.0 % LV Ejection Fraction 2C AL 76.9 % LA Diameter 3.3 cm RA Systolic Volume 4C AL 24.7 ml RA Systolic Volume 4C MOD 22.8 ml LA Sys Volume AL 18.1 cm cubed LA Sys Volume Index AL 9.3 cm cubed/m squared Aorta at Sinotubular Diameter 2.4 cm IVC Diameter 1.5 cm M-MODE LA Ao Ratio MM 0.9 AV Cusp Separation MM 1.7 cm DOPPLER AV Peak Velocity 140.0 cm/s LVOT Peak Velocity 120.0 cm/s AV Area Cont Eq vti 3.4 cm squared AV Area Cont Eq pk 2.7 cm squared MV Peak Velocity 107.0 cm/s MV Area PHT 6.1 cm squared Mitral E to A Ratio 0.6 TV Peak Velocity 290.5 cm/s TR Peak Velocity 294.0 cm/s TR Peak Gradient 34.6 mmHg TR Mean Velocity 260.0 cm/s TR Mean Gradient 27.7 mmHg TR Velocity Time Integral 69.2 cm PV Peak Velocity 118.0 cm/s RV Ejection Time 0.2 s FINDINGS Left Ventricle Normal left ventricular size and systolic function, EF 76%. Mild left ventricular hypertrophy. Grade I/IV diastolic dysfunction (abnormal relaxation filling pattern), normal to mildly elevated filling pressures. Right Ventricle The right ventricle is normal in size and function. Right Atrium The right atrium is normal in size. Left Atrium The left atrium is normal in size. Mitral Valve No gross abnormalities noted Aortic Valve Thickened aortic valve. Tricuspid Valve Mild tricuspid valve regurgitation. Pulmonic Valve Mild pulmonary valve regurgitation. Pericardium Normal pericardium without effusion. Aorta Normal ascending aorta dimension. IVC Normal inferior vena cava. CONCLUSIONS Diastolic dysfunction (abnormal relaxation filling pattern), normal to mildly elevated filling pressures. Thickened aortic valve. Mild tricuspid valve regurgitation. Estimated pulmonary artery peak systolic pressure 31 mmHg Mild pulmonary valve regurgitation. No similar previous studies are available for comparison Dr Harinder Marie MD [facility] (Electronically Signed) Final Date: 28 February 2025 00:10 S
--- NOTE | 2025-02-27 18:05 | PM.HP ---
Providers/Chief Complaint Chief Complaint: Fast heart rate History of Present Illness Dar Valdes is a 79 year old male with past medical history of hypertension hyperlipidemia, depression presented to the hospital today with chief complaint of palpitations. He states he notices fast heartbeat 3 days ago. Denies nausea vomiting chest pain shortness of breath or any other issues at this time. He did have mild chest discomfort which usually he states sometimes happens with activities. Denies fever, leg swelling. Denies a history of any heart disease in the past. He states his blood pressure at home has been fairly stable. He does chew tobacco however denies alcohol use. In the ER on initial EKG he had ST depressions in lateral leads and on arrival blood pressure was elevated. Subsequent EKGs those ST depressions resolved and he was in normal sinus rhythm. Initial troponin is pending at this time. Chest x-ray shows no acute infiltrate. CBC CMP reviewed which are within normal limits. Cardiology was consulted by ER physician. Medications/Allergies Home Medications ?Medication ?Instructions ?Recorded ?Confirmed ?Last Taken ?Type citalopram 40 mg tablet 40 mg PO DAILY 02/27/25 02/27/25 Unknown History metoprolol tartrate 50 mg tablet 50 mg PO BID 02/27/25 02/27/25 Unknown History pantoprazole 40 mg tablet,delayed 40 mg PO DAILY 02/27/25 02/27/25 Unknown History release simvastatin 20 mg tablet 20 mg PO BEDTIME 02/27/25 02/27/25 Unknown History Allergies Allergy/AdvReac Type Severity Reaction Status Date / Time aspirin Allergy ADR/ALGY-Pa Verified 02/27/25 14:58 lpitations PFSH Acute PFSH: Medical History (Updated 02/27/25 @ 18:17 by Sharona Hurt MD) Hyperlipidemia, unspecified hyperlipidemia type Primary hypertension Vitals/I&O/Wt Last Vital Signs Temp 98.3 F 02/27/25 14:58 Pulse 101 H 02/27/25 16:31 Resp 22 H 02/27/25 16:31 BP 199/103 02/27/25 16:31 Pulse Ox 99 02/27/25 16:31 O2 Del Method Room Air 02/27/25 14:58 02/27/25 02/27/25 02/27/25 06:59 14:59 22:59 Intake Total 0 / 0 Balance 0 / 0 Weight last 48 hrs Weight 77.111 kg Physical Exam Narrative: General: Alert oriented x3, patient seen laying in bed appearing comfortable at this time. Hypertensive at this time. 109/103. Heart rate 99 HEENT: Normocephalic, atraumatic, EOMI, breathing on room air. Cardio: Regular rate rhythm, normal S1-S2, Respiratory: Clear to auscultation bilaterally no wheezes no rhonchi. GI: Abdomen soft, nontender, bowel sounds + Extremities: No edema bilateral lower extremities. Data 02/27/25 16:32 02/27/25 16:32 A&P Assessment and plan 1. Primary hypertension: 2. Palpitations: 3. Hyperlipidemia, unspecified hyperlipidemia type: 4. Hypertensive urgency: Plan: #Hypertensive urgency with EKG changes #Initial complaint of palpitations on arrival. #Hyperlipidemia #Palpitations - Check troponins and serial EKGs ? Continue Lopressor 50 twice daily ? Will place on Nitropaste half inch every 6 hours to ensure chest wall ? Check D-dimer ? Check CTA chest ? Check echocardiogram ? Blood pressure is very high and that will need to be controlled. ? Hopefully Nitropaste will help with high blood pressure however if remains uncontrolled may consider IV hydralazine versus Cardene drip. ? Continue to monitor at this time ? Admit to cardiac stepdown unit and placed on cardiac telemetry ? Check lipid profile, hemoglobin A1c, TSH ? Continue citalopram ? Cardiology consulted. Appreciate recommendations. Full code Due to prophylaxis: Heparin SQ twice daily PDMP PDMP Reviewed: Not Reviewed Attestations Medical Necessity Statement*: Observation mission for less than 2 midnights for complaint of palpitations, high blood pressure and EKG changes. Diagnoses Primary hypertension I10 Hypertension type: primary hypertension Palpitations R00.2 Hyperlipidemia, unspecified hyperlipidemia type E78.5 Hyperlipidemia type: unspecified Hypertensive urgency I16.0
[2025-02-27 18:55] LABS: Troponin 5 2HR 13.42 ng/L (0-15)
[2025-02-27 18:56] LABS: Troponin 5 2HR Delta -0.58 ABS# (0-10)
[2025-02-27 19:02] LABS: Cholesterol 127 mg/dL (0-200); HDL Cholesterol 38 mg/dL (60-100); Thyroid Stimulating Hormone 0.86 uIU/mL (0.27-4.20); Triglycerides 100 mg/dL (0-150); VLDL Cholestrol Calculation 20 mg/dL (0-30)
[2025-02-27] MEDS: nitroglycerin 1 gm/inch oint Pkt 0.5 INCH TOPICAL ×2 (19:44→23:29)
[2025-02-27] MEDS: heparin 5,000 unit/mL INJ 1 mL 5000 UNIT SUBCUT (19:44)
[2025-02-27 20:25] LABS: Estmated Average Glucose 126; Hemoglobin A1C 6.0 % (4.0-6.0)
--- NOTE | 2025-02-27 22:36 | ECG_ITS ---
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
[2025-02-27 23:04] LABS: Troponin 5 6HR 18.63 ng/L (0-15); Troponin 5 6HR Delta 4.63 ng/L (0-12)
[2025-02-28] VITALS (9 sets, daily range): BP systolic 114–169; BP diastolic 68–87; PULSE 60–71; RESP 14–19; TEMP 36.6–37.1; O2SAT 94–96
[2025-02-28 04:08] LABS: Hematocrit 45.8 % (37-53); Hemoglobin 15.30 g/dL (11.27-16.99); Mean Corpuscular HGB Conc 33.4 g/dL (30-55); Mean Corpuscular Hemoglobin 30.3 pg (27-33); Mean Corpuscular Volume 90.7 fl (82-101); Nucleated Red Blood Cells % 0 %; Platelet Count 235 10^3/cmm (157-399); Red Blood Count 5.05 10^6/uL (3.85-5.65); White Blood Count 8.87 10^3/uL (3.29-11.43)
[2025-02-28 04:28] LABS: Alanine Aminotransferase 11 U/L (0-41); Albumin Level 3.8 g/dL (3.5-5.2); Alkaline Phosphatase 60 U/L (40-130); Anion Gap 14.5 (5-19); Aspartate Amino Transferase 12 U/L (0-40); Blood Urea Nitrogen 15 mg/dL (8-23); Calcium 8.8 mg/dL (8.5-10.5); Carbon Dioxide 28 mmol/L (22-29); Chloride 107 mmol/L (98-107); Creatinine Clr Calc Pharmacy 66.2078; Globulin 3.1 g/dL (1.3-4.6); Glucose 91 mg/dL (65-115); Magnesium 2.2 mg/dL (1.7-2.3); Osmolality Calculated 300 mOsm/kg (285-295); Potassium 4.5 mmol/L (3.5-5.1); Sodium 145 mmol/L (136-145); Total Protein 6.9 g/dL (6.6-8.7)
--- NOTE | 2025-02-28 05:26 | PC.NURSE ---
Asked patient if he was having any chest pain, he said no, I educated what the medication was for and he said he did not need it at this time. Vitals stable.
--- NOTE | 2025-02-28 06:34 | PM.PN ---
Vitals/I&O/Wt Last Vital Signs Temp 98.2 F 02/28/25 04:57 Pulse 64 02/28/25 05:58 Resp 16 02/28/25 04:57 BP 122/68 02/28/25 04:57 Pulse Ox 95 02/28/25 04:57 O2 Del Method Room Air 02/28/25 04:57 02/27/25 02/27/25 02/28/25 14:59 22:59 06:59 Intake Total 0 / 0 Output Total 200 / 200 350 / 550 Balance 0 / 0 -200 / -200 -350 / -550 Weight last 48 hrs Weight 72.711 kg Weight 77.111 kg Data 02/28/25 03:52 02/28/25 03:52 A&P PDMP PDMP Reviewed: Not Reviewed Coding Level of Care Code Acute Code for Chg Fwd
--- NOTE | 2025-02-28 08:59 | PM.PN ---
Subjective Subjective: Patient is feeling okay. He has no chest pain or shortness of breath. The vitals are stable. The blood pressure is 137/71 today. Cardiac enzymes are negative for myocardial injury so far. Medications: Medication Review Details: Current Medications Albuterol/Ipratropium (Ipratropium-Albuterol 3 Ml Neb) 3 ml INHALATION Q6H PRN PRN Reason: SHORTNESS OF BREATH Enoxaparin Sodium (Enoxaparin 80 Mg/0.8 Ml Syringe) 70 mg SUBCUT Q12H [facility] Last Admin: 02/27/25 23:27 Dose: 70 mg Metoprolol Tartrate (Metoprolol Tartrate 50 Mg Tablet) 50 mg PO BID@0900,2100 [facility] Last Admin: 02/28/25 08:50 Dose: 50 mg Nitroglycerin (Nitroglycerin 1 Gm/Inch Oint Pkt) 0.5 inch TOPICAL Q6H [facility] Last Admin: 02/28/25 05:25 Dose: Not Given Ondansetron HCl (Ondansetron 2 Mg/Ml Sdv 2 Ml) 4 mg IVP Q6H PRN PRN Reason: NAUSEA AND VOMITING Vitals/I&O/Wt Last Vital Signs Temp 98.3 F 02/28/25 07:48 Pulse 69 02/28/25 08:32 Resp 17 02/28/25 08:32 BP 137/71 02/28/25 07:48 Pulse Ox 96 02/28/25 08:32 O2 Del Method Room Air 02/28/25 08:32 02/27/25 02/28/25 02/28/25 22:59 06:59 14:59 Output Total 200 / 200 350 / 550 Balance -200 / -200 -350 / -550 Weight last 48 hrs Weight 160 lb 4.8 oz Weight 170 lb Physical Exam Narrative: GENERAL: The patient is alert and oriented times three. Not in any acute distress. HEENT: No significant pallor, icterus or lymphadenopathy.Oral cavity: There are no mucous membrane lesions. NECK: Trachea appears to be central. No masses noted. No JVD or thyromegaly appreciated. RESPIRATORY: Chest is symmetrical. No intercostals muscle retraction or any accessory muscle activation. There is no chest wall tenderness. Breath sounds are heard bilaterally. No rales or rhonchi heard. No evidence of any consolidation. BREASTS: Deferred. HEART: The heart sounds are normal. No S3 or S4. No significant murmurs. No pericardial rub ABDOMEN: No vessel pulsations or distention. No tenderness. No organomegaly appreciated. Bowel sounds are normally heard. : Deferred. RECTAL: Deferred. LYMPHATIC: No lymphadenopathy noted in the neck. EXTREMITIES: No edema or cyanosis. No clubbing. MUSCULOSKELETAL: No acute joint deformities or swelling SKIN: There are no significant rashes or ecchymosis NEUROPSYCHIATRIC: The patient is alert and oriented x3. Appears to be in a good mood. No tremors or rigidity noted. Data 02/28/25 03:52 02/28/25 03:52 Other Labs: Laboratory Last Values WBC 8.87 10^3/uL (3.29-11.43) 02/28/25 03:52 RBC 5.05 10^6/uL (3.85-5.65) 02/28/25 03:52 Hgb 15.30 g/dL (11.27-16.99) 02/28/25 03:52 Hct 45.8 % (37-53) 02/28/25 03:52 MCV 90.7 fl (82-101) 02/28/25 03:52 MCH 30.3 pg (27-33) 02/28/25 03:52 MCHC 33.4 g/dL (30-55) 02/28/25 03:52 RDW 12.8 % (12.1-15.1) 02/28/25 03:52 Plt Count 235 10^3/cmm (157-399) 02/28/25 03:52 MPV 9.8 fL (7.4-10.4) 02/28/25 03:52 Neut % (Auto) 62.6 % 02/28/25 03:52 Lymph % (Auto) 28.5 % 02/28/25 03:52 Harmon % (Auto) 7.2 % 02/28/25 03:52 Eos % (Auto) 0.9 % 02/28/25 03:52 Baso % (Auto) 0.6 % 02/28/25 03:52 Neut # (Auto) 5.55 10^3/uL (1.8-7.7) 02/28/25 03:52 Lymph # (Auto) 2.5 10^3/uL (0.8-4.8) 02/28/25 03:52 Harmon # (Auto) 0.6 10^3/uL (0.2-0.9) 02/28/25 03:52 Eos # (Auto) 0.1 10^3/uL (0.0-0.8) 02/28/25 03:52 Baso # (Auto) 0.1 10^3/uL (0.0-0.1) 02/28/25 03:52 Nucleated RBC % (auto) 0 % 02/28/25 03:52 Nucleated RBCs # 0.0 /100WBC 02/28/25 03:52 D-Dimer 0.49 ug/mLFEU (0-0.59) 02/27/25 22:53 Sodium 145 mmol/L (136-145) 02/28/25 03:52 Potassium 4.5 mmol/L (3.5-5.1) 02/28/25 03:52 Chloride 107 mmol/L (98-107) 02/28/25 03:52 Carbon Dioxide 28 mmol/L (22-29) 02/28/25 03:52 Anion Gap 14.5 (5-19) 02/28/25 03:52 BUN 15 mg/dL (8-23) 02/28/25 03:52 Creatinine 0.9 mg/dL (0.7-1.2) 02/28/25 03:52 GFR Calculation Not Reportable 02/28/25 03:52 Glucose 91 mg/dL (65-115) 02/28/25 03:52 Estimat Average Glucose 126 02/27/25 16:32 Hemoglobin A1c 6.0 % (4.0-6.0) 02/27/25 16:32 Calculated Osmolality 300 mOsm/kg (285-295) H 02/28/25 03:52 Calcium 8.8 mg/dL (8.5-10.5) 02/28/25 03:52 Magnesium 2.2 mg/dL (1.7-2.3) 02/28/25 03:52 Total Bilirubin 0.7 mg/dL (0.15-1.2) 02/28/25 03:52 AST 12 U/L (0-40) 02/28/25 03:52 ALT 11 U/L (0-41) 02/28/25 03:52 Alkaline Phosphatase 60 U/L (40-130) 02/28/25 03:52 Troponin T Baseline 14 ng/L (0-15) 02/27/25 16:32 Troponin T 120 Minute 13.42 ng/L (0-15) 02/27/25 18:32 Delta Troponin T -0.58 ABS# (0-10) L 02/27/25 18:32 Troponin T Hi Sens 6Hr 18.63 ng/L (0-15) H 02/27/25 22:30 Troponin T Hi Sens 6Hr Delta 4.63 ng/L (0-12) 02/27/25 22:30 Total Protein 6.9 g/dL (6.6-8.7) 02/28/25 03:52 Albumin 3.8 g/dL (3.5-5.2) 02/28/25 03:52 Globulin 3.1 g/dL (1.3-4.6) 02/28/25 03:52 Triglycerides 100 mg/dL (0-150) 02/27/25 16:32 Cholesterol 127 mg/dL (0-200) 02/27/25 16:32 LDL Cholesterol, Calc 69 mg/dL (50-129) 02/27/25 16:32 Total VLDL Cholesterol 20 mg/dL (0-30) 02/27/25 16:32 HDL Cholesterol 38 mg/dL (60-100) L 02/27/25 16:32 Cholesterol/HDL Ratio 3.34 mg/dL (1.0-5.00) 02/27/25 16:32 TSH 0.86 uIU/mL (0.27-4.20) 02/27/25 16:32 TSH 0.88 uIU/mL (0.27-4.20) 02/27/25 16:32 Urine Color Yellow (Yellow) 02/27/25 17:27 Urine Appearance Clear (CLEAR) 02/27/25 17: Urine pH 6.5 (5-7) 02/27/25 17: Ur Specific Exline 1.025 (1.005-1.030) 02/27/25 17: Urine Protein Negative (Negative) 02/27/25 17: Urine Glucose (UA) Negative (Normal) 02/27/25 17: Urine Ketones 1+ (Negative) H 02/27/25 17:27 Urine Blood Negative (Negative) 02/27/25 17:27 Urine Nitrate Negative (Negative) 02/27/25 17:27 Urine Bilirubin Negative (Negative) 02/27/25 17: Urine Urobilinogen 1.0 mg/dL (Negative) 02/27/25 17:27 Ur Leukocyte Esterase Negative (Negative) 02/27/25 17:27 Urine RBC 3-5 /hpf (0-2) 02/27/25 17:27 Urine WBC 0-5 /hpf (0-5) 02/27/25 17:27 Ur Squamous Epith Cells 0-5 /hpf (0-5) 02/27/25 17:27 Amorphous Sediment Not Reportable 02/27/25 17:27 Urine Bacteria None seen /hpf (NONE) 02/27/25 17: Hyaline Casts 0.81 /lpf 02/27/25 17:27 Other data: Echocardiogram from yesterday \diastolic dysfunction (abnormal relaxation filling pattern), normal to mildly elevated filling pressures. Thickened aortic valve. Mild tricuspid valve regurgitation. Estimated pulmonary artery peak systolic pressure 31 mmHg Mild pulmonary valve regurgitation. No similar previous studies are available for comparison A&P Assessment and plan 1. QUESADA (dyspnea on exertion): Patient's dyspnea exertion with palpitation, rather acute onset, may suggest pulmonary embolism. This need to be ruled out. LV dysfunction/coronary ischemia causing this cannot be excluded. The D-dimer is in the normal range. The echocardiogram is unremarkable. The accelerated hypertension causing the symptoms also is a consideration. 2. Abnormal ECG: The EKG is having nonspecific. Possibility of underlying coronary ischemia causing this is a consideration. For further evaluation of the symptoms, a Myocardial perfusion imaging would be appropriate. 3. Palpitations: Possibly from the sinus tachycardia. 4. Primary hypertension: Patient has accelerated hypertension. I will start him on metoprolol 50 mg p.o. now and twice daily. The blood pressure is in the normal range at this time. 5. Hyperlipidemia, unspecified hyperlipidemia type: Lipid profile on the blood in the lab. Consider medications after reviewing the results. Plan: The patient is insisting on going home today. Since he is doing okay with no symptoms at this time, it may be appropriate to discharge him home. May be scheduled for exercise/sestamibi/sestamibi stress test as an outpatient May go home on Toprol-XL 50 mg p.o. daily and amlodipine 2.5 mg p.o. daily Appointment the [facility] to be seen by nurse practitioner in a week Discussed with Dr. Hurt Appoint with me in the office in 1 month Patient may be discharged home PDMP PDMP Reviewed: Not Reviewed Attestations Medical Necessity Statement*: Possible discharge home today Coding Level of Care Code 40122 Diagnoses QUESADA (dyspnea on exertion) R06.09 Abnormal ECG R94.31 Palpitations R00.2 Primary hypertension I10 Hypertension type: primary hypertension Hyperlipidemia, unspecified hyperlipidemia type E78.5 Hyperlipidemia type: unspecified
--- OUTSIDE RECORDS SUMMARY | 2025-02-28 09:08 | XMS_ITS | Encounter Summary ---
Author Organization [employer] Address 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
--- OUTSIDE RECORDS SUMMARY | 2025-02-28 09:08 | XMS_ITS | Clinical Summary ---
Author Organization [facility] Address [address] [place] [address] Care Team Providers Care Manager Administrative Name Role Phone Adriana Smith Primary Care Provider [phone] Allergies Active Allergy Reactions Criticality Noted Date [...] Data STL ABSTRACTION Provider, Abstract 12/08/2024 Refill [facility] [address] [place] [address] Lukas Tavarez, MICHAEL Pure hypercholesterolemia from Last 3 Months Immunizations Immunization Administration Dates Next Due (ADACEL/BOOSTRIX)(10 YR UP) TDAP VACCINE, 0.5ML, IM 12/27/2018 (PFIZER)(12 YR UP) COVID-19 VACCINE - EMERGENCY USE AUTHORIZATION, MRNA, [id number]) 30 MCG/0.3 ML IM SUSP 05/16/2021,04/25/2021 Family [...] on file 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 Gender Identity Not on file Sexual Orientation Not on file Last Filed Vital Signs Vital Sign Reading Time Taken Comments Blood Pressure 132/76 06/20/2024 4:00 PM MACHINE STONE POLISHER Pulse 67 06/10/2024 9:30 AM CDT Temperature [...] 5 season) 2024 05/16/2021, 04/25/2021 [place] Preventative Visit/Annual Wellness Visit 08/13/2024 06/10/2024, 12/07/2022, 01/04/2022, Additional history exists INFLUENZA VACCINE (#1) 2025 , 08/27/2023, 2021, Additional history exists DTAP/TDAP/TD VACCINES (2 - T d or Tdap) 12/27/2028 12/27/2018 Colorectal Cancer Screening Discontinued FIT-DNA Q 3 years Discontinued 07/19/2020 COLORECTAL SCREENING Discontinued FIT/FOBT Q 1 year Discontinued Flex Sig/CT Colonography Q 5 years Discontinued Medical Devices Implanted Type Area Breakfast Server Device Identifier Shelf Expiration Date Model / Serial / Lot Clip Crtg Med/Lrg 1112 - Sna Implanted:Qty: 1 on 01/30/2023 by Mario Escudero DO at [facility] Clip N/A: Abdomen [employer] 10/10/2027 1112 / NA / [id number] Procedures Procedure Name Priority Date/Time Associated Diagnosis Comments COLON CANCER SCREEN, STOOL DNA Routine 07/19/2020 7:06 PM MACHINE STONE POLISHER from Last 3 Months or Most Recently Relevant to Health Maintenance Results * COLON CANCER SCREEN, STOOL DNA (07/19/2020 7:06 PM MACHINE STONE POLISHER) COLOGUARD RESULT Negative Not Applicable 07/23/2020 10:22 PM [facility] [employer] Comment: A negative result indicates a low [...] Van. et al, N Engl J Med 2014;370(14):2695-2694) The normal value (reference range) for this assay is negative. COLOGUARD RE-SCREENING RECOMMENDATION: Periodic routine colorectal cancer screening is an important part of preventive healthcare for asymptomatic persons at average risk for colorectal cancer. Following a negative Cologuard result, the [place] Cancer Society and U.S. Multi-Society Task Force screening guidelines recommend a Cologuard re-screening interval of 3 years. References: [place] Cancer Society (ACS). Colorectal cancer prevention and early detection. [place], [place]: [place] Cancer Society; [updated 2015Dec 04]. https://www.cancer.org/cancer/wtcqf-lqzaml-auxkev/nuoasnnzc-movjbobhw-thwikye/ac s-rec ommendations.html. Accessed April 12, 2018; Herberth DK, Brant CR, Awa VelasquezK, Colorectal Cancer Screening: Recommendations for Physicians and Patients from the U.S. Multi-Society Task Force on Colorectal Cancer Screening, Am J Gastroenterology 2017; 112:0142-8768. TEST TYPE: Composite algorithmic analysis of stool [...] interval of every 3 years by the [place] Cancer Society and U.S. Multi-Society Task Force. [...] can be accessed at the following location: www.[employer]/results. Additional description of the Cologuard test process, warnings and precautions can be found at www.cologuardtest.com. Rx only. Stool STOOL SPECIMEN / Unknown 07/19/2020 7:06 PM MACHINE STONE POLISHER 07/20/2020 6:49 PM MACHINE STONE POLISHER us Dayan Vale MANUAL WINDER BODY FLUIDS AND STOOLS Final Result [employer] [facility] # [id number] [address], [address] [place] [address] from Last 3 Months or Most Recently Relevant to Health Maintenance Insurance [facility] MEDICARE HMO Advance Directives For more information, please contact: [phone] * Full Code (Latest Code Status on File) Date Activated Date Inactivated Comments 01/30/2023 8:45 AM 01/30/2023 12:41 PM * Full Code Date Activated Date Inactivated Comments 01/30/2023 7:07 AM 01/30/2023 8:44 AM * Full Code Date Activated Date Inactivated Comments 01/30/2023 6:47 AM 01/30/2023 7:07 AM Care Teams Manager Administrative Relationship Specialty Start Date End Date Adriana Smith DO [address] [place] [address] PCP - General Family Practice 04/29/10
--- OUTSIDE RECORDS SUMMARY | 2025-02-28 09:08 | XMS_ITS | Encounter Summary ---
Author Organization [facility] Address [address] [place] [address] Care Team Providers Care Torpedo Specialist Name Role Phone Adriana Smith DO Primary Care Provider Encounter Details Date Type Department Care Team (Late st Contact Info) Description 05/30/2021 Telephone [facility] Medicine [place] [address] [place] [facility] [place] [facility] [place] [address] Adriana Smith DO [address] [place] [address] Social History Tobacco Use Types Packs/Day Years Used Date Smoking Tobacco: Never Smokeless Tobacco: Current Chew Alcohol Use Standard Drinks/Week Comments No 0 (1 standard drink = 0.6 oz pur e alcohol) Sex and Gender Information Value Date Recorded Sex Assigned at Not on file 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
--- OUTSIDE RECORDS SUMMARY | 2025-02-28 09:08 | XMS_ITS | Clinical Summary ---
Author Organization [facility] Address [address] 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 Gender Identity Not on file Sexual Orientation [...] - 1-dose 75+ series) 2019 Medicare Advantage ([place]) Preventative Visit/Annual Wellness Visit 08/13/2024 06/10/2024, 12/13/2020, [...] STOOL DNA Routine 07/19/2020 7:06 PM MACHINE SHOP WORKER Screening for colon cancer from Last 3 Months or Most Recently Relevant to Health Maintenance Results * COLON CANCER SCREEN, STOOL DNA (07/19/2020 7:06 PM MACHINE SHOP WORKER) Pathologist [facility] COLOGUARD RESULT Negative Not Applicable [facility] Comment: A negative result indicates a [...] Antonio et al, N Engl J Med 2014;370(14):1488-2107) The normal value (reference range) for this assay is negative. COLOGUARD RE-SCREENING RECOMMENDATION: Periodic routine colorectal cancer screening is an important part of preventive healthcare for asymptomatic persons at average risk for colorectal cancer. Following a negative Cologuard result, the [place] Cancer Society and U.S. Multi-Society Task Force screening guidelines recommend a Cologuard re-screening interval of 3 years. References: [place] [employer] Society (ACS). Colorectal cancer prevention and early detection. [place], [place]: [place] [employer] Society; [updated 2015Dec 04]. https://www.cancer.org/cancer/jhdbg-aslcel-blvkss/icjwmfpbw-mamjafafe-vlwqhdb/ac s-rec ommendations.html. Accessed April 12, 2018; Herberth DK, Brant TALAVERA, Awa VelasquezK, Colorectal Cancer Screening: Recommendations for Physicians and Patients from the U.S. Multi-Society Task Force on Colorectal Cancer Screening, Am J Gastroenterology 2017; 112:0209-8988. TEST TYPE: Composite algorithmic analysis of stool [...] interval of every 3 years by the [place] Cancer Society and U.S. Multi-Society Task Force. [...] can be accessed at the following location: www.[employer]/results. Additional description of the Cologuard test process, warnings and precautions can be found at www.cologuardtest.com. Rx only. Stool STOOL SPECIMEN / Unknown 07/19/2020 7:06 PM MACHINE SHOP WORKER 07/20/2020 6:49 PM MACHINE SHOP WORKER us Dayan Vale [employer] STOOLS Final Result [employer] CLIA # [id number] [address] , [address] [place] [address] from Last 3 Months or Most Recently Relevant to Health Maintenance Insurance [facility] MCR Care Teams Quenching Car Operator Relationship Specialty Start Date End Date Adriana Smith DO [address] [place] [phone] PCP - General Family Practice 04/29/10
--- OUTSIDE RECORDS SUMMARY | 2025-02-28 09:08 | XMS_ITS | Encounter Summary ---
Author Organization [facility] Address 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
--- OUTSIDE RECORDS SUMMARY | 2025-02-28 09:08 | XMS_ITS | Encounter Summary ---
Author Organization [facility] Address [address] [place] [address] Care Team Providers Care Kiln Tender Name Role Phone Adriana Smith DO Primary Care Provider Encounter Details Date Type Department Care Team (Late st Contact Info) Description 03/09/2003 Outpatient Historical [facility] [place] [address] 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
--- OUTSIDE RECORDS SUMMARY | 2025-02-28 09:08 | XMS_ITS | Encounter Summary ---
Author Organization [employer] Address 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 [place] [address] PCP - General Family Practice 04/29/10 documented as of this encounter
--- OUTSIDE RECORDS SUMMARY | 2025-02-28 09:08 | XMS_ITS | Encounter Summary ---
Author Organization [facility] Address 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
--- NOTE | 2025-02-28 10:29 | CTR_ITS ---
PROCEDURE INFORMATION: Exam: CTA Chest With Contrast Exam date and time: 02/28/2025 10:41 AM Age: 79 years old Clinical indication: Dyspnea; Additional info: R/O pe TECHNIQUE: Imaging protocol: Computed tomographic angiography of the chest with contrast. Exam focused on the arteries. 3D rendering (Not supervised by radiologist): MIP and/or 3D reconstructed images were created by the technologist. Radiation optimization: All CT scans at this facility use at least one of these dose optimization techniques: automated exposure control; mA and/or kV adjustment per patient size (includes targeted exams where dose is matched to clinical indication); or iterative reconstruction. Contrast material: OMNIPAQUE 350; Contrast volume: 60 ml; Contrast route: INTRAVENOUS (IV); COMPARISON: CR (CHEST, ) 02/27/2025 4:38 PM RADIATION DOSE METRICS: Total DLP (mGy-cm): 331.07 FINDINGS: Pulmonary arteries: Small filling defect within a right upper lobe segmental artery on series 7, image 173 consistent with age-indeterminate pulmonary embolism. Small clot burden. No evidence of heart strain. Aorta: Unremarkable. No aortic aneurysm. No aortic dissection. Lungs: Right lower lobe granuloma. No infiltrate. Chronic pleural-parenchymal scarring lung apices noted. Pleural spaces: See Lungs finding. Heart: See Pulmonary arteries finding. Lymph nodes: Unremarkable. No enlarged lymph nodes. Bones/joints: Unremarkable. No acute fracture. Soft tissues: Unremarkable. CT/CT angio chest PE protcl [id number] IMPRESSION: Small filling defect within a right upper lobe segmental artery on series 7, image 173 consistent with age-indeterminate pulmonary embolism. Small clot burden. No evidence of heart strain.
--- NOTE | 2025-02-28 10:36 | P.DS_ITS ---
Discharge Providers Date of Admission: 02/27/25 16:43 Date of Discharge: February 28, 2025 Attending Provider at Admission: Sharona Hurt MD Attending Provider at Discharge: Sharona Hurt MD Diagnoses at Discharge Discharge Diagnosis 1. QUESADA (dyspnea on exertion): 2. Abnormal EC. Palpitations: 4. Primary hypertension: 5. Hyperlipidemia, unspecified hyperlipidemia type: Reason for Visit Reason for Visit: Fast heart rate Discharge Data Studies Completed and Pending Completed Studies During Hospitalization Category Date Time Status XR chest 1V portable [id number] Stat Exams 02/27/25 16:37 Completed CV. echo complete* [id number] Stat Ultrasound 02/27/25 17:58 Completed Pending at discharge Category Date Time Status CTA chest [CT angio chest PE protcl [id number]] Stat Cat Scan 02/28/25 10:29 Ordered Radiology Impressions Chest X-Ray 02/27/25 16:37 IMPRESSION: No acute infiltrate. Laboratory Results WBC 8.87 10^3/uL (3.29-11.43) 02/28/25 03:52 RBC 5.05 10^6/uL (3.85-5.65) 02/28/25 03:52 Hgb 15.30 g/dL (11.27-16.99) 02/28/25 03:52 Hct 45.8 % (37-53) 02/28/25 03:52 MCV 90.7 fl (82-101) 02/28/25 03:52 MCH 30.3 pg (27-33) 02/28/25 03:52 MCHC 33.4 g/dL (30-55) 02/28/25 03:52 RDW 12.8 % (12.1-15.1) 02/28/25 03:52 Plt Count 235 10^3/cmm (157-399) 02/28/25 03:52 MPV 9.8 fL (7.4-10.4) 02/28/25 03:52 Neut % (Auto) 62.6 % 02/28/25 03:52 Lymph % (Auto) 28.5 % 02/28/25 03:52 [place] % (Auto) 7.2 % 02/28/25 03:52 Eos % (Auto) 0.9 % 02/28/25 03:52 Baso % (Auto) 0.6 % 02/28/25 03:52 Neut # (Auto) 5.55 10^3/uL (1.8-7.7) 02/28/25 03:52 Lymph # (Auto) 2.5 10^3/uL (0.8-4.8) 02/28/25 03:52 [place] # (Auto) 0.6 10^3/uL (0.2-0.9) 02/28/25 03:52 Eos # (Auto) 0.1 10^3/uL (0.0-0.8) 02/28/25 03:52 Baso # (Auto) 0.1 10^3/uL (0.0-0.1) 02/28/25 03:52 Nucleated RBC % (auto) 0 % 02/28/25 03:52 Nucleated RBCs # 0.0 /100WBC 02/28/25 03:52 D-Dimer 0.49 ug/mLFEU (0-0.59) 02/27/25 22:53 Sodium 145 mmol/L (136-145) 02/28/25 03:52 Potassium 4.5 mmol/L (3.5-5.1) 02/28/25 03:52 Chloride 107 mmol/L (98-107) 02/28/25 03:52 Carbon Dioxide 28 mmol/L (22-29) 02/28/25 03:52 Anion Gap 14.5 (5-19) 02/28/25 03:52 BUN 15 mg/dL (8-23) 02/28/25 03:52 Creatinine 0.9 mg/dL (0.7-1.2) 02/28/25 03:52 GFR Calculation Not Reportable 02/28/25 03:52 Glucose 91 mg/dL (65-115) 02/28/25 03:52 Estimat Average Glucose 126 02/27/25 16:32 Hemoglobin A1c 6.0 % (4.0-6.0) 02/27/25 16:32 Calculated Osmolality 300 mOsm/kg (285-295) H 02/28/25 03:52 Calcium 8.8 mg/dL (8.5-10.5) 02/28/25 03:52 Magnesium 2.2 mg/dL (1.7-2.3) 02/28/25 03:52 Total Bilirubin 0.7 mg/dL (0.15-1.2) 02/28/25 03:52 AST 12 U/L (0-40) 02/28/25 03:52 ALT 11 U/L (0-41) 02/28/25 03:52 Alkaline Phosphatase 60 U/L (40-130) 02/28/25 03:52 Troponin T Baseline 14 ng/L (0-15) 02/27/25 16:32 Troponin T 120 Minute 13.42 ng/L (0-15) 02/27/25 18:32 Delta Troponin T -0.58 ABS# (0-10) L 02/27/25 18:32 Troponin T Hi Sens 6Hr 18.63 ng/L (0-15) H 02/27/25 22:30 Troponin T Hi Sens 6Hr Delta 4.63 ng/L (0-12) 02/27/25 22:30 Total Protein 6.9 g/dL (6.6-8.7) 02/28/25 03:52 Albumin 3.8 g/dL (3.5-5.2) 02/28/25 03:52 Globulin 3.1 g/dL (1.3-4.6) 02/28/25 03:52 Triglycerides 100 mg/dL (0-150) 02/27/25 16:32 Cholesterol 127 mg/dL (0-200) 02/27/25 16:32 LDL Cholesterol, Calc 69 mg/dL (50-129) 02/27/25 16:32 Total VLDL Cholesterol 20 mg/dL (0-30) 02/27/25 16:32 HDL Cholesterol 38 mg/dL (60-100) L 02/27/25 16:32 Cholesterol/HDL Ratio 3.34 mg/dL (1.0-5.00) 02/27/25 16:32 TSH 0.86 uIU/mL (0.27-4.20) 02/27/25 16:32 TSH 0.88 uIU/mL (0.27-4.20) 02/27/25 16:32 Urine Color Yellow (Yellow) 02/27/25 17:27 Urine Appearance Clear (CLEAR) 02/27/25 17: Urine pH 6.5 (5-7) 02/27/25 17: Ur Specific [place] 1.025 (1.005-1.030) 02/27/25 17:27 Urine Protein Negative (Negative) 02/27/25 17:27 Urine Glucose (UA) Negative (Normal) 02/27/25 17:27 Urine Ketones 1+ (Negative) H 02/27/25 17:27 Urine Blood Negative (Negative) 02/27/25 17:27 Urine Nitrate Negative (Negative) 02/27/25 17:27 Urine Bilirubin Negative (Negative) 02/27/25 17:27 Urine Urobilinogen 1.0 mg/dL (Negative) 02/27/25 17:27 Ur Leukocyte Esterase Negative (Negative) 02/27/25 17:27 Urine RBC 3-5 /hpf (0-2) 02/27/25 17:27 Urine WBC 0-5 /hpf (0-5) 02/27/25 17:27 Ur Squamous Epith Cells 0-5 /hpf (0-5) 02/27/25 17:27 Amorphous Sediment Not Reportable 02/27/25 17:27 Urine Bacteria None seen /hpf (NONE) 02/27/25 17:27 Hyaline Casts 0.81 /lpf 02/27/25 17:27 Vitals Last Vital Signs Temp 98.3 F 02/28/25 07:48 Pulse 69 02/28/25 08:32 Resp 17 02/28/25 08:32 BP 137/71 02/28/25 07:48 Pulse Ox 96 02/28/25 08:32 O2 Del Method Room Air 02/28/25 08:32 Discharge Plan Discharge Patient Disposition: Home Condition: Stable Prescriptions: New metoprolol succinate [Toprol XL] 50 mg tablet extended release 24 hr 50 mg PO DAILY Qty: 30 0RF isosorbide mononitrate 30 mg tablet extended release 24 hr 30 mg PO DAILY Qty: 30 0RF amlodipine 2.5 mg tablet 2.5 mg PO DAILY Qty: 30 0RF Continued citalopram 40 mg tablet 40 mg PO DAILY pantoprazole 40 mg tablet,delayed release (DR/EC) 40 mg PO DAILY simvastatin 20 mg tablet 20 mg PO BEDTIME Discontinued metoprolol tartrate 50 mg tablet 50 mg PO BID Other Ambulatory Orders: Cardiac Stress Test Request (Routine) Timeframe: 1 Day Facility: [facility] - Location: Cardiac Diagnostic Laboratory Ordered By: Sharona Hurt Referrals: Harinder Marie MD [Physician, Cardiology] - 1 month Adry Fox FNP [Nurse Practitioner, Cardiology] - 4-7 days Discharge Diet: Cardiac Discharge Activity: Resume usual activity Patient Instructions: Opioid Safety, Patient Portal & Kate Instructions Coding Level of Care Code Acute Code for Chg Fwd Diagnoses QUESADA (dyspnea on exertion) R06.09 Abnormal ECG R94.31 Palpitations R00.2 Primary hypertension I10 Hypertension type: primary hypertension Hyperlipidemia, unspecified hyperlipidemia type E78.5 Hyperlipidemia type: unspecified
[2025-02-28] MEDS: iohexol 350 mg/mL 500 mL Btl (per mL) IV (10:46)
--- NOTE | 2025-02-28 11:47 | P.PN_ITS ---
Subjective 2 Subjective: This morning. Patient requesting to go home. D-dimer was 0.6 yesterday. CTA chest has been ordered. Discussed with cardiology. If CTA chest negative for PE may be discharged safely. Medications have been optimized. Normotensive overnight but has been on a Nitropaste. Vitals/I&O/Wt Last Vital Signs Temp 98.3 F 02/28/25 07:48 Pulse 71 02/28/25 11:36 Resp 19 H 02/28/25 11:36 BP 137/71 02/28/25 11:36 Pulse Ox 96 02/28/25 11:36 O2 Del Method Room Air 02/28/25 08:32 02/27/25 02/28/25 02/28/25 22:59 06:59 14:59 Intake Total 360 / 360 Output Total 200 / 200 350 / 550 Balance -200 / -200 -350 / -550 360 / 360 Weight last 48 hrs Weight 72.711 kg Weight 77.111 kg Physical Exam 2 Narrative: General: Alert oriented x3, sitting up in bed appearing comfortable. HEENT: Normocephalic, atraumatic, EOMI, breathing on room air. Cardio: Regular rate rhythm, normal S1-S2, Respiratory: Clear to auscultation bilaterally no wheezes no rhonchi. GI: Abdomen soft, nontender, bowel sounds + Extremities: No edema bilateral lower extremities. Data 02/28/25 03:52 02/28/25 03:52 A&P Assessment and plan 1. Primary hypertension: 2. Palpitations: 3. Hyperlipidemia, unspecified hyperlipidemia type: 4. Hypertensive urgency: 5. Pulmonary embolism: Plan: #Hypertensive urgency with EKG changes #Initial complaint of palpitations on arrival. #Hyperlipidemia #Palpitations - Check troponins and serial EKGs ? Continue Lopressor 50 twice daily ? Will place on Nitropaste half inch every 6 hours to ensure chest wall ? Check D-dimer ? Check CTA chest ? Check echocardiogram ? Blood pressure is very high and that will need to be controlled. ? Hopefully Nitropaste will help with high blood pressure however if remains uncontrolled may consider IV hydralazine versus Cardene drip. ? Continue to monitor at this time ? Admit to cardiac stepdown unit and placed on cardiac telemetry ? Check lipid profile, hemoglobin A1c, TSH ? Continue citalopram ? Cardiology consulted. Appreciate recommendations. Full code Due to prophylaxis: Heparin SQ twice daily 02/28/2025 Initially patient was going to be discharged however CTA chest that showed a small pulmonary embolism in left upper lobe. We will start heparin drip. Plan to decision to Eliquis in next 24 to 48 hours for discharge. Discussed with cardiology. Given patient's symptoms EKG changes and palpitations we would like to place him on heparin. If patient decides to leave he will have to leave AGAINST MEDICAL ADVICE at this point. Stop Nitropaste. Continue metoprolol tartrate 50 twice daily while in hospital. Patient have outpatient stress test follow-up with cardiology after discharge. Will need home O2 evaluation prior to discharge. PE possibly unprovoked. He will need hematology consultation at time of discharge. Since he has already been anticoagulated I will hold off on ordering protein C S hypercoagulable labs. PDMP PDMP Reviewed: Not Reviewed Attestations 2 Medical Necessity Statement*: Pulmonary embolism, on heparin drip. Diagnoses Primary hypertension I10 Hypertension type: primary hypertension Palpitations R00.2 Hyperlipidemia, unspecified hyperlipidemia type E78.5 Hyperlipidemia type: unspecified Hypertensive urgency I16.0 Pulmonary embolism I26.99
[2025-02-28] MEDS: heparin drip 25,000 UNIT/500 ML PREMIX 21 UNIT IV (12:02)
[2025-02-28 19:37] LABS: Partial Thromboplastin Time 184.3 SECONDS (23.9-36.7)
--- NOTE | 2025-02-28 20:11 | PC.NURSE ---
Contacted physician due to a ptt of 184.3, got orders to hold the drip for two hours and recheck the ptt, the start at 4mls/he less than the original dose.
[2025-02-28 22:33] LABS: Partial Thromboplastin Time 43.8 SECONDS (23.9-36.7)
[2025-03-01 00:13] VITALS: BP 145/87; PULSE 61; RESP 17; O2SAT 97
[2025-03-01 04:55] VITALS: BP 115/69; PULSE 58; RESP 16; TEMP 36.9; O2SAT 96
[2025-03-01 05:15] LABS: Partial Thromboplastin Time 117.3 SECONDS (23.9-36.7)
[2025-03-01 06:00] VITALS: PULSE 58
[2025-03-01 07:44] VITALS: PULSE 66; RESP 16; O2SAT 96
[2025-03-01 07:56] VITALS: BP 154/88; PULSE 78; RESP 16; TEMP 36.6; O2SAT 96
--- NOTE | 2025-03-01 09:39 | P.PN_ITS ---
Subjective 2 Subjective: Patient has not had any chest pain or palpitations. No shortness of breath. Vitals are stable. Tolerated the heparin so far well. No bleeding. Medications: Medication Review Details: Current Medications Albuterol/Ipratropium (Ipratropium-Albuterol 3 Ml Neb) 3 ml INHALATION Q6H PRN PRN Reason: SHORTNESS OF BREATH Heparin Sodium (Porcine) (Heparin 5,000 Unit/Ml Inj 1 Ml) 0 unit IVP PRN PRN; Protocol PRN Reason: Heparin Weight Based Protocol -Subsequent Bolus Heparin Sodium/Sodium Chloride (Heparin Drip) 25,000 unit in 500 mls @ 0 mls/hr IV CONT ZHANNA; Protocol Last Titration: 03/01/25 05:38 Dose: 8.94 unit/kg/hr, 13 mls/hr Metoprolol Tartrate (Metoprolol Tartrate 50 Mg Tablet) 50 mg PO BID@0900,2100 ZHANNA Last Admin: 03/01/25 08:49 Dose: 50 mg Ondansetron HCl (Ondansetron 2 Mg/Ml Sdv 2 Ml) 4 mg IVP Q6H PRN PRN Reason: NAUSEA AND VOMITING Vitals/I&O/Wt Last Vital Signs Temp 97.8 F 03/01/25 07:56 Pulse 78 03/01/25 07:56 Resp 16 03/01/25 07:56 BP 154/88 03/01/25 07:56 Pulse Ox 96 03/01/25 07:56 O2 Del Method Room Air 03/01/25 07:44 02/28/25 03/01/25 03/01/25 22:59 06:59 14:59 Intake Total 165.9 / 765.9 115.883 / 881.783 Output Total 250 / 250 350 / 600 Balance -84.1 / 515.9 -234.117 / 281.783 Weight last 48 hrs Weight 160 lb 9.6 oz Weight 160 lb 4.8 oz Weight 170 lb Physical Exam 2 Narrative: GENERAL: The patient is alert and oriented times three. Not in any acute distress. HEENT: No significant pallor, icterus or lymphadenopathy.Oral cavity: There are no mucous membrane lesions. NECK: Trachea appears to be central. No masses noted. No JVD or thyromegaly appreciated. RESPIRATORY: Chest is symmetrical. No intercostals muscle retraction or any accessory muscle activation. There is no chest wall tenderness. Breath sounds are heard bilaterally. No rales or rhonchi heard. No evidence of any consolidation. BREASTS: Deferred. HEART: The heart sounds are normal. No S3 or S4. No significant murmurs. No pericardial rub ABDOMEN: No vessel pulsations or distention. No tenderness. No organomegaly appreciated. Bowel sounds are normally heard. : Deferred. RECTAL: Deferred. LYMPHATIC: No lymphadenopathy noted in the neck. EXTREMITIES: No edema or cyanosis. No clubbing. MUSCULOSKELETAL: No acute joint deformities or swelling SKIN: There are no significant rashes or ecchymosis NEUROPSYCHIATRIC: The patient is alert and oriented x3. Appears to be in a good mood. No tremors or rigidity noted. Data 02/28/25 03:52 02/28/25 03:52 Other Labs: Laboratory Last Values WBC 8.87 10^3/uL (3.29-11.43) 02/28/25 03:52 RBC 5.05 10^6/uL (3.85-5.65) 02/28/25 03:52 Hgb 15.30 g/dL (11.27-16.99) 02/28/25 03:52 Hct 45.8 % (37-53) 02/28/25 03:52 MCV 90.7 fl (82-101) 02/28/25 03:52 MCH 30.3 pg (27-33) 02/28/25 03:52 MCHC 33.4 g/dL (30-55) 02/28/25 03:52 RDW 12.8 % (12.1-15.1) 02/28/25 03:52 Plt Count 235 10^3/cmm (157-399) 02/28/25 03:52 Plt Count Cancelled 02/28/25 03:52 MPV 9.8 fL (7.4-10.4) 02/28/25 03:52 Neut % (Auto) 62.6 % 02/28/25 03:52 Lymph % (Auto) 28.5 % 02/28/25 03:52 [place] % (Auto) 7.2 % 02/28/25 03:52 Eos % (Auto) 0.9 % 02/28/25 03:52 Baso % (Auto) 0.6 % 02/28/25 03:52 Neut # (Auto) 5.55 10^3/uL (1.8-7.7) 02/28/25 03:52 Lymph # (Auto) 2.5 10^3/uL (0.8-4.8) 02/28/25 03:52 [place] # (Auto) 0.6 10^3/uL (0.2-0.9) 02/28/25 03:52 Eos # (Auto) 0.1 10^3/uL (0.0-0.8) 02/28/25 03:52 Baso # (Auto) 0.1 10^3/uL (0.0-0.1) 02/28/25 03:52 Nucleated RBC % (auto) 0 % 02/28/25 03:52 Nucleated RBCs # 0.0 /100WBC 02/28/25 03:52 APTT 117.3 SECONDS (23.9-36.7) H D 03/01/25 04:38 D-Dimer 0.49 ug/mLFEU (0-0.59) 02/27/25 22:53 Sodium 145 mmol/L (136-145) 02/28/25 03:52 Potassium 4.5 mmol/L (3.5-5.1) 02/28/25 03:52 Chloride 107 mmol/L (98-107) 02/28/25 03:52 Carbon Dioxide 28 mmol/L (22-29) 02/28/25 03:52 Anion Gap 14.5 (5-19) 02/28/25 03:52 BUN 15 mg/dL (8-23) 02/28/25 03:52 Creatinine 0.9 mg/dL (0.7-1.2) 02/28/25 03:52 GFR Calculation Not Reportable 02/28/25 03:52 Glucose 91 mg/dL (65-115) 02/28/25 03:52 Estimat Average Glucose 126 02/27/25 16:32 Hemoglobin A1c 6.0 % (4.0-6.0) 02/27/25 16:32 Calculated Osmolality 300 mOsm/kg (285-295) H 02/28/25 03:52 Calcium 8.8 mg/dL (8.5-10.5) 02/28/25 03:52 Magnesium 2.2 mg/dL (1.7-2.3) 02/28/25 03:52 Total Bilirubin 0.7 mg/dL (0.15-1.2) 02/28/25 03:52 AST 12 U/L (0-40) 02/28/25 03:52 ALT 11 U/L (0-41) 02/28/25 03:52 Alkaline Phosphatase 60 U/L (40-130) 02/28/25 03:52 Troponin T Baseline 14 ng/L (0-15) 02/27/25 16:32 Troponin T 120 Minute 13.42 ng/L (0-15) 02/27/25 18:32 Delta Troponin T -0.58 ABS# (0-10) L 02/27/25 18:32 Troponin T Hi Sens 6Hr 18.63 ng/L (0-15) H 02/27/25 22:30 Troponin T Hi Sens 6Hr Delta 4.63 ng/L (0-12) 02/27/25 22:30 Total Protein 6.9 g/dL (6.6-8.7) 02/28/25 03:52 Albumin 3.8 g/dL (3.5-5.2) 02/28/25 03:52 Globulin 3.1 g/dL (1.3-4.6) 02/28/25 03:52 Triglycerides 100 mg/dL (0-150) 02/27/25 16:32 Cholesterol 127 mg/dL (0-200) 02/27/25 16:32 LDL Cholesterol, Calc 69 mg/dL (50-129) 02/27/25 16:32 Total VLDL Cholesterol 20 mg/dL (0-30) 02/27/25 16:32 HDL Cholesterol 38 mg/dL (60-100) L 02/27/25 16:32 Cholesterol/HDL Ratio 3.34 mg/dL (1.0-5.00) 02/27/25 16:32 TSH 0.86 uIU/mL (0.27-4.20) 02/27/25 16:32 TSH 0.88 uIU/mL (0.27-4.20) 02/27/25 16:32 Urine Color Yellow (Yellow) 02/27/25 17:27 Urine Appearance Clear (CLEAR) 02/27/25 17: Urine pH 6.5 (5-7) 02/27/25 17:27 Ur Specific [place] 1.025 (1.005-1.030) 02/27/25 17: Urine Protein Negative (Negative) 02/27/25 17: Urine Glucose (UA) Negative (Normal) 02/27/25 17: Urine Ketones 1+ (Negative) H 02/27/25 17:27 Urine Blood Negative (Negative) 02/27/25 17: Urine Nitrate Negative (Negative) 02/27/25 17: Urine Bilirubin Negative (Negative) 02/27/25 17: Urine Urobilinogen 1.0 mg/dL (Negative) 02/27/25 17:27 Ur Leukocyte Esterase Negative (Negative) 02/27/25 17: Urine RBC 3-5 /hpf (0-2) 02/27/25 17: Urine WBC 0-5 /hpf (0-5) 02/27/25 17: Ur Squamous Epith Cells 0-5 /hpf (0-5) 02/27/25 17: Amorphous Sediment Not Reportable 02/27/25 17: Urine Bacteria None seen /hpf (NONE) 02/27/25 17: Hyaline Casts 0.81 /lpf 02/27/25 17:27 A&P Assessment and plan 1. Acute pulmonary embolism without acute cor pulmonale, unspecified pulmonary embolism type: Patient is hemodynamically stable. Going to be started on oral anticoagulation today. 2. QUESADA (dyspnea on exertion): Most likely related to the PE. However a cardiac etiology cannot be excluded especially with the nonspecific EKG changes. 3. Abnormal ECG: We may consider doing a stress test after a month or so. 4. Palpitations: Possibly from the sinus tachycardi, which in turn could be from the PE 5. Primary hypertension: The blood pressure is under control. May continue on the current medications. 6. Hyperlipidemia, unspecified hyperlipidemia type: Lipid profile on the blood in the lab. Consider medications after reviewing the results. Plan: Patient may be given an appointment to be seen in the clinic in a week. Will consider doing a stress test in a month or so. May be continued on the current medications. PDMP PDMP Reviewed: Not Reviewed Attestations 2 Medical Necessity Statement*: Possible discharge home today Coding Level of Care Code 63178 Diagnoses Acute pulmonary embolism without acute cor pulmonale, unspecified pulmonary embolism type I26.99 Pulmonary embolism type: unspecified Chronicity: acute Acute cor pulmonale presence: without acute cor pulmonale QUESADA (dyspnea on exertion) R06.09 Abnormal ECG R94.31 Palpitations R00.2 Primary hypertension I10 Hypertension type: primary hypertension Hyperlipidemia, unspecified hyperlipidemia type E78.5 Hyperlipidemia type: unspecified
--- NOTE | 2025-03-01 11:53 | PM.DCS ---
Discharge Providers Date of Admission: 02/27/25 16:43 Date of Discharge: March 01, 2025 Attending Provider at Admission: Shraona Hurt MD Attending Provider at Discharge: Amanda Stapleton MD Consults: Cardiology with Dr. Barrera Primary Care Provider: Follow-up with PCP as stated below within 1 week Diagnoses at Discharge Discharge Diagnosis 1. Pulmonary embolism: 2. Palpitations: 3. Hypertensive urgency: 4. Abnormal EC. Hyperlipidemia, unspecified hyperlipidemia type: 6. QUESADA (dyspnea on exertion): Reason for Visit Reason for Visit: Fast heart rate Brief History: Patient presented for chest pain secondary to PE with rapid ventricular rate. PE has been treated with heparin drip and then Eliquis started today. Patient heart rate now is in the 60s on beta-cara in house it was metoprolol 50 mg twice daily just like the same beta-cara patient takes at home and dose at discharge patient is seen metoprolol succinate 50 mg once daily. Hospital Course Hospital Course Dar Valdes is a 79 year old male with past medical history of hypertension hyperlipidemia, depression presented to the hospital today with chief complaint of palpitations. He states he notices fast heartbeat 3 days prior to presentation . Denies nausea vomiting chest pain shortness of breath or any other issues at this time. He did have mild chest discomfort which usually he states sometimes happens with activities. Denies fever, leg swelling. Denies a history of any heart disease in the past. He states his blood pressure at home has been fairly stable. He does chew tobacco however denies alcohol use. In the ER on initial EKG he had ST depressions in lateral leads and on arrival blood pressure was elevated. Subsequent EKGs those ST depressions resolved and he was in normal sinus rhythm. l troponins with elevated . Chest x-ray shows no acute infiltrate. CBC CMP reviewed which are within normal limits. Cardiology was consulted by ER physician. Patient was noted to have NSTEMI as troponin with elevated with chest pain. Heparin drip was started CTA of the chest was done and patient indeed had PE. Patient today doing well on room air blood pressure controlled with no other issues and ready to go home I started patient on Eliquis 5 mg twice daily. I called cardiology on-call DISCUSSED CASE AND HE WAS AGREEABLE TO DISCHARGE PATIENT ON ELIQUIS. PATIENT IS NOT ON ANY ANTIPLATELETS AT HOME AND 1 IS NOT BEING SENT HOME AT THIS TIME NEW MEDICATION IS ELIQUIS 5 MG TWICE DAILY. PATIENT TO FOLLOW-UP WITH CARDIOLOGY IN 1 MONTH AND FOLLOW-UP WITH THE CARE PROVIDER PCP WITHIN 1 WEEK Physical Exam Narrative: General The patient is in no apparent distress HEENT normocephalic atraumatic Neck neck is supple Cardiovascular heart rate is regular Lungs lungs are clear Abdomen is soft nontender nondistended unremarkable extremities intact Neurology has no focality Discharge Data Studies Completed and Pending Completed Studies During Hospitalization Category Date Time Status CTA chest [CT angio chest PE protcl [id number]] Stat Cat Scan 02/28/25 10:29 Completed XR chest 1V portable [id number] Stat Exams 02/27/25 16:37 Completed CV. echo complete* [id number] Stat Ultrasound 02/27/25 17:58 Completed Pending at discharge Category Date Time Status PTT [Partial Thromboplastin Time] Timed Lab 03/01/25 11:30 Ordered Platelet Count Q2D Lab 03/02/25 04:00 Ordered Platelet Count Q2D Lab 03/04/25 04:00 Ordered Radiology Impressions Chest X-Ray 02/27/25 16:37 IMPRESSION: No acute infiltrate. Chest CTA 02/28/25 10:29 IMPRESSION: Small filling defect within a right upper lobe segmental artery on series 7, image 173 consistent with age-indeterminate pulmonary embolism. Small clot burden. No evidence of heart strain. ADDENDUM: 02/28/25 1145 COMMENT: THIS REPORT CONTAINS FINDINGS THAT MAY BE CRITICAL TO PATIENT CARE. The exam findings were verbally communicated by me to Dr. Panda via telephone conference at 11:43 AM CDT on 02/28/2025. The findings were acknowledged and understood. Laboratory Results WBC 8.87 10^3/uL (3.29-11.43) 02/28/25 03:52 RBC 5.05 10^6/uL (3.85-5.65) 02/28/25 03:52 Hgb 15.30 g/dL (11.27-16.99) 02/28/25 03:52 Hct 45.8 % (37-53) 02/28/25 03:52 MCV 90.7 fl (82-101) 02/28/25 03:52 MCH 30.3 pg (27-33) 02/28/25 03:52 MCHC 33.4 g/dL (30-55) 02/28/25 03:52 RDW 12.8 % (12.1-15.1) 02/28/25 03:52 Plt Count 235 10^3/cmm (157-399) 02/28/25 03:52 Plt Count Cancelled 02/28/25 03:52 MPV 9.8 fL (7.4-10.4) 02/28/25 03:52 Neut % (Auto) 62.6 % 02/28/25 03:52 Lymph % (Auto) 28.5 % 02/28/25 03:52 [place] % (Auto) 7.2 % 02/28/25 03:52 Eos % (Auto) 0.9 % 02/28/25 03:52 Baso % (Auto) 0.6 % 02/28/25 03:52 Neut # (Auto) 5.55 10^3/uL (1.8-7.7) 02/28/25 03:52 Lymph # (Auto) 2.5 10^3/uL (0.8-4.8) 02/28/25 03:52 [place] # (Auto) 0.6 10^3/uL (0.2-0.9) 02/28/25 03:52 Eos # (Auto) 0.1 10^3/uL (0.0-0.8) 02/28/25 03:52 Baso # (Auto) 0.1 10^3/uL (0.0-0.1) 02/28/25 03:52 Nucleated RBC % (auto) 0 % 02/28/25 03:52 Nucleated RBCs # 0.0 /100WBC 02/28/25 03:52 APTT 117.3 SECONDS (23.9-36.7) H D 03/01/25 04:38 D-Dimer 0.49 ug/mLFEU (0-0.59) 02/27/25 22:53 Sodium 145 mmol/L (136-145) 02/28/25 03:52 Potassium 4.5 mmol/L (3.5-5.1) 02/28/25 03:52 Chloride 107 mmol/L (98-107) 02/28/25 03:52 Carbon Dioxide 28 mmol/L (22-29) 02/28/25 03:52 Anion Gap 14.5 (5-19) 02/28/25 03:52 BUN 15 mg/dL (8-23) 02/28/25 03:52 Creatinine 0.9 mg/dL (0.7-1.2) 02/28/25 03:52 GFR Calculation Not Reportable 02/28/25 03:52 Glucose 91 mg/dL (65-115) 02/28/25 03:52 Estimat Average Glucose 126 02/27/25 16:32 Hemoglobin A1c 6.0 % (4.0-6.0) 02/27/25 16:32 Calculated Osmolality 300 mOsm/kg (285-295) H 02/28/25 03:52 Calcium 8.8 mg/dL (8.5-10.5) 02/28/25 03:52 Magnesium 2.2 mg/dL (1.7-2.3) 02/28/25 03:52 Total Bilirubin 0.7 mg/dL (0.15-1.2) 02/28/25 03:52 AST 12 U/L (0-40) 02/28/25 03:52 ALT 11 U/L (0-41) 02/28/25 03:52 Alkaline Phosphatase 60 U/L (40-130) 02/28/25 03:52 Troponin T Baseline 14 ng/L (0-15) 02/27/25 16:32 Troponin T 120 Minute 13.42 ng/L (0-15) 02/27/25 18:32 Delta Troponin T -0.58 ABS# (0-10) L 02/27/25 18:32 Troponin T Hi Sens 6Hr 18.63 ng/L (0-15) H 02/27/25 22:30 Troponin T Hi Sens 6Hr Delta 4.63 ng/L (0-12) 02/27/25 22:30 Total Protein 6.9 g/dL (6.6-8.7) 02/28/25 03:52 Albumin 3.8 g/dL (3.5-5.2) 02/28/25 03:52 Globulin 3.1 g/dL (1.3-4.6) 02/28/25 03:52 Triglycerides 100 mg/dL (0-150) 02/27/25 16:32 Cholesterol 127 mg/dL (0-200) 02/27/25 16:32 LDL Cholesterol, Calc 69 mg/dL (50-129) 02/27/25 16:32 Total VLDL Cholesterol 20 mg/dL (0-30) 02/27/25 16:32 HDL Cholesterol 38 mg/dL (60-100) L 02/27/25 16:32 Cholesterol/HDL Ratio 3.34 mg/dL (1.0-5.00) 02/27/25 16:32 TSH 0.86 uIU/mL (0.27-4.20) 02/27/25 16:32 TSH 0.88 uIU/mL (0.27-4.20) 02/27/25 16:32 Urine Color Yellow (Yellow) 02/27/25 17:27 Urine Appearance Clear (CLEAR) 02/27/25 17: Urine pH 6.5 (5-7) 02/27/25 17:27 Ur Specific [place] 1.025 (1.005-1.030) 02/27/25 17:27 Urine Protein Negative (Negative) 02/27/25 17:27 Urine Glucose (UA) Negative (Normal) 02/27/25 17: Urine Ketones 1+ (Negative) H 02/27/25 17:27 Urine Blood Negative (Negative) 02/27/25 17:27 Urine Nitrate Negative (Negative) 02/27/25 17: Urine Bilirubin Negative (Negative) 02/27/25 17: Urine Urobilinogen 1.0 mg/dL (Negative) 02/27/25 17:27 Ur Leukocyte Esterase Negative (Negative) 02/27/25 17:27 Urine RBC 3-5 /hpf (0-2) 02/27/25 17:27 Urine WBC 0-5 /hpf (0-5) 02/27/25 17:27 Ur Squamous Epith Cells 0-5 /hpf (0-5) 02/27/25 17:27 Amorphous Sediment Not Reportable 02/27/25 17:27 Urine Bacteria None seen /hpf (NONE) 02/27/25 17: Hyaline Casts 0.81 /lpf 02/27/25 17:27 Vitals Last Vital Signs Temp 97.8 F 03/01/25 07:56 Pulse 78 03/01/25 07:56 Resp 16 03/01/25 07:56 BP 154/88 03/01/25 07:56 Pulse Ox 96 03/01/25 07:56 O2 Del Method Room Air 03/01/25 07:44 Discharge Plan Discharge Patient Disposition: Home Condition: Stable Prescriptions: New metoprolol succinate [Toprol XL] 50 mg tablet extended release 24 hr 50 mg PO DAILY Qty: 30 0RF isosorbide mononitrate 30 mg tablet extended release 24 hr 30 mg PO DAILY Qty: 30 0RF amlodipine 2.5 mg tablet 2.5 mg PO DAILY Qty: 30 0RF Eliquis DVT-PE Treat 30D Start 5 mg (74 tabs) tablets,dose pack See Rx Instructions .ROUTE .COMPLEX Qty: 74 0RF Rx Instructions: orally per package directions Continued citalopram 40 mg tablet 40 mg PO DAILY pantoprazole 40 mg tablet,delayed release (DR/EC) 40 mg PO DAILY simvastatin 20 mg tablet 20 mg PO BEDTIME Discontinued metoprolol tartrate 50 mg tablet 50 mg PO BID [facility] [place] for DC: Cardiology Discharge Order = DC NOW: Discharge Order (Routine); Ordered 03/01/25 Ordered By: Amanda Stapleton Other Ambulatory Orders: Complete Blood Count w/Auto (Routine) Timeframe: 3 Days Location: Determined by Patient Ordered By: Sharona Hurt Cardiac Stress Test Request (Routine) Timeframe: 1 Day Facility: [facility] - Location: Cardiac Diagnostic Laboratory Ordered By: Sharona Hurt Referrals: Harinder Marie MD [Physician, Cardiology] - 1 month Referral Note: We have notified your physician's clinic of the need for a follow-up appointment to be scheduled. If you have not heard from them within the next 2 business days, please call them directly. Adry Fox FNP [Nurse Practitioner, Cardiology] - 4-7 days Referral Note: We have notified your physician's clinic of the need for a follow-up appointment to be scheduled. If you have not heard from them within the next 2 business days, please call them directly. Discharge Diet: Cardiac Discharge Activity: Resume usual activity Patient Instructions: Metoprolol (By mouth), Amlodipine (By mouth), Isosorbide Mononitrate (By mouth), Chronic Hypertension (DC), Atrial Tachycardia (DC), Opioid Safety, Patient Portal & Kate Instructions Discharge Attestations Time Spent in Discharge Care*: less than 30 min Specific Discharge Activities: Other discharge activites (optional): Activities as tolerated Time Spent in Smoking Cessation: 5 minutes in teaching Quality Metrics Clinical Quality Measures [ No reported AMI, CVA or VTE this stay] Coding Level of Care Code 79992 Diagnoses Pulmonary embolism I26.99 Chronicity: acute Acute cor pulmonale presence: without acute cor pulmonale Palpitations R00.2 Hypertensive urgency I16.0 Abnormal ECG R94.31 Hyperlipidemia, unspecified hyperlipidemia type E78.5 Hyperlipidemia type: unspecified QUESADA (dyspnea on exertion) R06.09 Time Spent (min) 30
[2025-03-01 12:23] VITALS: BP 154/84; PULSE 67; RESP 13; O2SAT 96
--- NOTE | 2025-03-01 12:59 | PC.NURSE ---
discharge instructions given and explained.pt and family verb understanding of instructions.elibrettis coupon given.discharged via w/c to exit at this time.son to drive pt home
== END 2025-03-01 13:01 | disposition home or self-care (01) ==
LOC: ER 16:52 → CSU 02-28 04:40
PROVIDERS: Internal Medicine Cardiovascular Disease; Admitting Provider Internal Medicine; Emergency Provider Family Medicine; Visit Provider Internal Medicine
DX: I26.99 Other pulmonary embolism without acute cor pulmonale (principal); R00.2 Palpitations; I16.0 Hypertensive urgency; R94.31 Abnormal electrocardiogram [ECG] [EKG]; E78.5 Hyperlipidemia, unspecified; R06.09 Other forms of dyspnea; K21.9 Gastro-esophageal reflux disease without esophagitis; F17.220 Nicotine dependence, chewing tobacco, uncomplicated; F32.A Depression, unspecified
CPT/HCPCS: 36415; 71045; 71275; 80053; 80061; 81001; 83036; 83735; 84443; 84484; 85025; 85378; 85730; 93005; 93306; 96365; 96372; 96375; 99285; A9270; G0378; J0360; J1644; J1650; J9999

== ENCOUNTER → 2025-03-23 13:52 | Outpatient (BNVA) | payer MEDICARE, SELFPAY | PROVIDERS: Visit Provider Nurse Practitioner Family | DX: R00.2 Palpitations (principal); R94.31 Abnormal electrocardiogram [ECG] [EKG]; I10 Essential (primary) hypertension; E78.5 Hyperlipidemia, unspecified; R73.03 Prediabetes; Z79.01 Long term (current) use of anticoagulants; Z87.891 Personal history of nicotine dependence; Z86.711 Personal history of pulmonary embolism | CPT/HCPCS: 99213 ==